=== PATIENT | male | born 1985 | race Caucasian/White ===

== ENCOUNTER 2018-12-14 09:14 | Inpatient (IN) | payer BC ==
[~2018-12-14 09:14] MED LIST: Buffered Lidocaine 1% SYRIN* 1 ML/SYRINGE INTRADERM ONE; Dexamethasone IV* 4 MG/ML 1 ML (4 MG) IV SLOW PU ONE; Famotidine IV* 10 MG/ML 2 ML (20 mg) IV ONE; Lactated Ringers 1000 ML Bag* 1,000 ML IV SCH
--- OUTSIDE RECORDS SUMMARY | 2018-12-14 09:17 | XMS REPORT | Continuity of Care Document ---
:1985 External Reference #:[id number] Author Name Christie Curz MD Address [address] [place] [address] Care Team Providers Name Role Phone Maricruz Ramos MD Care Team Information Internist Unavailable Christie Cruz MD Primary Care Physician Unavailable Payers Type Date Identification Numbers Payment Provider Subscriber Policy Number: [id number] Jay Chan Murray PayID: [id number] [address] [address] [place] [address] Advance Directives Description No Information Available Problems Date Description Provider Status Onset: 05/19/2012 Sprain of ankle Vinay Chaudhari MD Active Onset: 01/31/2017 Benign essential hypertension Damián Ascencio M.D. Active Onset: 01/31/2017 Shoulder joint pain Damián Ascencio M.D. Active Onset: 01/31/2017 Disorder of shoulder Damián Ascencio M.D. Active Onset: 01/31/2017 Glenoid labrum tear Damián Ascencio M.D. Active Onset: 02/11/2017 Brachial neuritis Damián Ascencio M.D. Active Onset: 06/20/2017 Carpal tunnel syndrome of right wrist Damián Ascencio M.D. 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 Work Status Currently Working Tobacco Use Start: Unknown End: Quit in 2013 Unknown Smoking Status Reviewed: 11/22/18 Quit in 2013 Smokeless Tobacco Never Used Smokeless Tobacco ETOH Use Currently consumes alcohol socially Recreational Drug Use Denies Drug Use Tobacco Use Start: Unknown End: Patient is a former Quit 2013 Unknown smoker Allergies, Adverse Reactions, Alerts Description No Known Drug Allergies Medications Medication Date Status Form Strength Qnty SIG Indications Ordering Provider Losartan 07/25/20 Active Tablets 50mg 30tabs 1 by Nancy, Potassium 17 mouth MD Christie every day Wrist 05/13/20 Active Misc 1units wear on M75.41 Nancy, Brace/Suede 17 right MD Christie Finish/Right/L wrist arge during day G56.01 Atorvastatin 02/11/2017 Active Tablets 40mg 30tabs 1 by mouth Nancy, Calcium every MD Christie evening Amlodipine 01/27/2017 Active Tablets 5mg 30tabs take one I1 Nancy, Besylate tablet by 0 MD Christie mouth every day for blood pressure Lyrica Active Capsules 100mg take one Unknown capsule by mouth twice a day. Cyclobenzaprine Active Tablets 10mg 1 tablet Unknown HCL by mouth 3 times per day Oxycodone HCL Active Tablets 5mg A/D prn Quinton Do MD Amoxicillin/Clavul 11/01/2018 - Hx Tablets 875-125 20tabs take one J0 ayana Evans Potassium 11/22/2018 mg tablet 1. Tessa every 12 90 e, MS, hours [employer], CNM Hydrocodone-Acetam 03/29/2018 - Hx Tablets 5-325mg 14tabs 1 tab once Shmuel, inophen 06/14/2018 per day lucia Choudharyn pain MD Mc 02/20/2018 - Hx Tablets 5-325mg 14tabs 1 tab by Shmuel, 06/14/2018 mouth once Funmi, per day as MD needed for pain Hydrocodone-Acetam 11/03/2017 - Hx Tablets 5-325mg 30tabs 1 tab Shmuel, inophen 03/01/2018 every 8 Charley, hours as MD needed Nitroglycerin 09/05/2017 - Hx Patches 0.2mg/H 30units apply 1 Ramos, 09/19/2018 24HR R patch once MD Maricruz daily,appl y in am, leave on for 12 hours,off for 12 hours Gabapentin 08/23/2017 - Hx Tablets 600mg 1 by mouth Nancy, 12/23/2017 three MD Christie times a day Tramadol HCL 08/05/2017 Hx Tablets 50mg 42tabs take one Nancy, tablet by MD Christie mouth every 8 hours as needed pain. Gabapentin 07/25/2017 - Hx Capsules 300mg 1 by mouth Nancy, 08/23/2017 three MD Christie times a day Tramadol HCL 06/15/2017 - Hx Tablets 50mg 21tabs take one Nancy, 07/25/2017 tablet by MD Christie mouth every 8 hours as needed pain. Elbow Support 05/13/2017 - Hx Misc wear on G5 Nancy, W/Encircling 03/01/2018 right 6. MD Christie Support elbow 01 Strap/Neoprene/Lar during day ge S53.031A Augmentin 04/06/2017 - Hx Tablets 875-125mg 14tabs 1 tab by Nancy, 05/13/2017 mouth MD Christie q12hrs for 7 days Cyclobenzaprine HCL 02/16/2017 Hx Tablets 10mg 90tabs 1 tab three Nancy, times a day MD Christie for upper back shoulder and neck pain Diclofenac Sodium 01/27/2017 - Hx Gel 1% 100gm 2 g topical M25 Nancy, 05/13/2017 on right .51 MD Christie shoulder 1 twice a day Ibuprofen Hx Unknown Tylenol Hx Tablets 325mg prn Unknown One Daily Complete Hx Tablets Unknown For Men Naproxen - Hx Tablets 500mg 2 daily Ranjit, 05/13/2017 MD Iker Hydrocodone-Acetami - Hx Tablets 5-325mg 30tabs 1 tab every Nancy, nophen 05/13/2017 8 hours as MD Christie needed Gabapentin - Hx Capsules 300mg 1 by mouth Nancy, 06/20/2017 three times MD Christie a day Meloxicam - Hx Tablets 15mg 30tabs 1 tab by Nancy, 06/20/2017 mouth every MD Christie day with food Medications Administered in Office Medication Date Status Form Strength Qnty SIG Indications Ordering Provider Depomedrol Administered Injection Silva, 40mg/1cc 018 Damián (gordon Amor olone acetate) Depo-Medrol Administered Injection Silva, 20mg 017 Zuleyma Steel Immunizations CPT Code Status Date Vaccine Lot # [id number] Given 07/25/2017 Influenza Virus Vaccine, Quadrivalent, Slit Virus, Im Use [id number] Given 06/05/2017 Tdap injection Vital Signs Date Vital Result Comment 11/22/2018 3:10pm BP Systolic 128 mmHg BP Diastolic 72 mmHg BP Systolic Sitting Left Arm 144 mmHg BP Diastolic Sitting Left Arm 74 mmHg Body Temperature 96.6 F Heart Rate 107 /min Respiratory Rate 18 /min Height 70 inches 5'10" Weight 217.00 lb BMI (Body Mass Index) 31.1 kg/m2 BSA (Body Surface Area) 2.16 m2 Vanduser body weight in kilograms 75 kg O2 % BldC Oximetry 98 % Ra 11/01/2018 10:19am BP Systolic Sitting Left Arm 124 mmHg BP Diastolic Sitting Left Arm 76 mmHg Body Temperature 97.0 F Heart Rate 100 /min Respiratory Rate 18 /min Height 70 inches 5'10" Weight 223.00 lb work boots BMI (Body Mass Index) 32.0 kg/m2 BSA (Body Surface Area) 2.19 m2 Vanduser body weight in kilograms 75 kg O2 % BldC Oximetry 99 % Ra 09/19/2018 10:10am BP Systolic Sitting Left Arm 138 mmHg BP Diastolic Sitting Left Arm 80 mmHg Heart Rate 106 /min Respiratory Rate 16 /min Height 70 inches 5'10" Weight 217.00 lb BMI (Body Mass Index) 31.1 kg/m2 BSA (Body Surface Area) 2.16 m2 Vanduser body weight in kilograms 75 kg 06/21/2018 2:40pm BP Systolic Sitting Right Arm 130 mmHg BP Diastolic Sitting Right Arm 84 mmHg Body Temperature 97.2 F Heart Rate 84 /min Height 70 inches 5'10" Weight 207.00 lb BMI (Body Mass Index) 29.7 kg/m2 BSA (Body Surface Area) 2.12 m2 Vanduser body weight in kilograms 75 kg O2 % BldC Oximetry 98 % 03/01/2018 11:06am BP Systolic 147 mmHg BP Diastolic 91 mmHg Body Temperature 98.1 F Heart Rate 76 /min Respiratory Rate 16 /min Height 70 inches 5'10" Weight 210.00 lb BMI (Body Mass Index) 30.1 kg/m2 BSA (Body Surface Area) 2.13 m2 Vanduser body weight in kilograms 75 kg Pain Level 7 12/23/2017 10:58am BP Systolic 142 mmHg BP Diastolic 87 mmHg Body Temperature 96.8 F Heart Rate 92 /min Respiratory Rate 15 /min Height 70 inches 5'10" Weight 215.00 lb BMI (Body Mass Index) 30.8 kg/m2 BSA (Body Surface Area) 2.15 m2 Vanduser body weight in kilograms 75 kg 11/25/2017 3:52pm BP Systolic Sitting Left Arm 132 mmHg BP Diastolic Sitting Left Arm 82 mmHg Heart Rate 92 /min Respiratory Rate 16 /min Height 70.5 inches 5'10.50" Weight 220.00 lb BMI (Body Mass Index) 31.1 kg/m2 BSA (Body Surface Area) 2.19 m2 Vanduser body weight in kilograms 77 kg 10/05/2017 12:00pm BP Systolic Sitting Left Arm 126 mmHg BP Diastolic Sitting Left Arm 78 mmHg Heart Rate 76 /min Respiratory Rate 14 /min Height 70.5 inches 5'10.50" Weight 217.00 lb BMI (Body Mass Index) 30.7 kg/m2 BSA (Body Surface Area) 2.17 m2 Vanduser body weight in kilograms 77 kg 09/05/2017 2:14pm BP Systolic Sitting Right Arm 158 mmHg BP Diastolic Sitting Right Arm 90 mmHg Heart Rate 72 /min Respiratory Rate 16 /min Height 70.5 inches 5'10.50" Weight 208.00 lb BMI (Body Mass Index) 29.4 kg/m2 BSA (Body Surface Area) 2.13 m2 Vanduser body weight in kilograms 77 kg 08/10/2017 11:25am BP Systolic Sitting Right Arm 145 mmHg BP Diastolic Sitting Right Arm 87 mmHg Heart Rate 93 /min Respiratory Rate 18 /min Height 70.5 inches 5'10.50" Weight 207.00 lb BMI (Body Mass Index) 29.3 kg/m2 BSA (Body Surface Area) 2.13 m2 Vanduser body weight in kilograms 77 kg 07/25/2017 3:23pm BP Systolic Sitting Right Arm 152 mmHg BP Diastolic Sitting Right Arm 82 mmHg Heart Rate 86 /min Height 70.5 inches 5'10.50" Weight 208.00 lb BMI (Body Mass Index) 29.4 kg/m2 BSA (Body Surface Area) 2.13 m2 Vanduser body weight in kilograms 77 kg O2 % BldC Oximetry 98 % 06/15/2017 10:49am BP Systolic Sitting Right Arm 146 mmHg BP Diastolic Sitting Right Arm 94 mmHg Body Temperature 97.8 F Heart Rate 88 /min Height 70.5 inches 5'10.50" Weight 210.00 lb BMI (Body Mass Index) 29.7 kg/m2 BSA (Body Surface Area) 2.14 m2 Vanduser body weight in kilograms 77 kg O2 % BldC Oximetry 98 % 05/13/2017 1:49pm BP Systolic Sitting Right Arm 142 mmHg BP Diastolic Sitting Right Arm 92 mmHg Heart Rate 90 /min Height 70.5 inches 5'10.50" Weight 212.50 lb BMI (Body Mass Index) 30.1 kg/m2 BSA (Body Surface Area) 2.15 m2 Vanduser body weight in kilograms 77 kg O2 % BldC Oximetry 98 % 03/04/2017 1:19pm BP Systolic 152 mmHg BP Diastolic 94 mmHg Heart Rate 104 /min Height 70.5 inches 5'10.50" Weight 216.00 lb BMI (Body Mass Index) 30.6 kg/m2 BSA (Body Surface Area) 2.17 m2 Vanduser body weight in kilograms 77 kg 02/11/2017 11:24am BP Systolic Sitting Right Arm 126 mmHg recheck. BP Diastolic Sitting Right Arm 84 mmHg recheck. 02/11/2017 10:38am BP Systolic Sitting Right Arm 172 mmHg BP Diastolic Sitting Right Arm 94 mmHg Heart Rate 92 /min Height 70.5 inches 5'10.50" Weight 211.00 lb BMI (Body Mass Index) 29.8 kg/m2 BSA (Body Surface Area) 2.15 m2 01/31/2017 9:54am BP Systolic Sitting Left Arm 168 mmHg BP Diastolic Sitting Left Arm 100 mmHg Heart Rate 84 /min Height 70.5 inches 5'10.50" Weight 216.00 lb BMI (Body Mass Index) 30.6 kg/m2 BSA (Body Surface Area) 2.17 m2 Vanduser body weight in kilograms 77 kg 01/27/2017 3:27pm BP Systolic Sitting Right Arm 144 mmHg retake BP Diastolic Sitting Right Arm 86 mmHg retake 01/27/2017 2:38pm BP Systolic 160 mmHg BP Diastolic 90 mmHg Heart Rate 94 /min Height 69.5 inches 5'9.50" Weight 217.00 lb with many layers of clothes. 204# at home BMI (Body Mass Index) 31.6 kg/m2 BSA (Body Surface Area) 2.15 m2 05/19/2012 10:07am BP Systolic Sitting Right Arm 132 mmHg BP Diastolic Sitting Right Arm 76 mmHg Height 69.5 inches 5'9.50" Weight 180.00 lb BMI (Body Mass Index) 26.2 kg/m2 BSA (Body Surface Area) 1.99 m2 Results Test Date Facility Test Result H/L Range Note Order 11/22/2018 [facility], Cardiology EKG <pending> [address] [place] [address] [phone] Comprehensive 11/18/2018 [facility] Glucose 94 mg/dL N 74-106 1 Metabolic Panel [address] [place] [address] [phone] BUN 20 mg/dL High 7-18 Creatinine 1.1 mg/dL N 0.6-1.3 Glom Filtration Rate, Estimate >60 mL/min >60 If >60 mL/min >60 2 BUN/Creat 18.1 ratio Sodium 139 mmol/L N 136-145 Potassium 3.8 mmol/L N 3.5-5.1 Chloride 104 mmol/L N 98-107 Carbon Dioxide 29 mmol/L N 21-32 Anion Gap 6 mEq/L Low 8-16 Calcium 8.5 mg/dL N 8.5-10.1 Total Protein 7.5 g/dL N 6.4-8.2 Albumin 4.3 g/dL N 3.4-5.0 Globulin 3.2 g/dL N 1.9-4.3 Alb/Glob 1.3 ratio Bilirubin,Total 1.1 mg/dL High 0.2-1.0 Sgot/Ast 32 U/L N 15-37 SGPT/Alt 76 U/L N 12-78 Alkaline Phosphatase 65 U/L N 45-117 Throat Culture 11/01/2018 [facility] Throat NORMAL 3, [address] [place] [address] Complete <SEE NOTE> [phone] Comprehensive 10/30/2018 [facility] Glucose 106 mg/dL N 74-10 5 Metabolic Panel [address] [place] [address] [phone] BUN 20 mg/dL High 7-18 Creatinine 1.0 mg/dL N 0.6-1.3 Glom Filtration Rate, Estimate >60 mL/min >60 If >60 mL/min >60 6 BUN/Creat 20.0 ratio Sodium 141 mmol/L N 136-145 Potassium 4.0 mmol/L N 3.5-5.1 Chloride 104 mmol/L N 98-107 Carbon Dioxide 29 mmol/L N 21-32 Anion Gap 8 mEq/L N 8-16 Calcium 8.8 mg/dL N 8.5-10.1 Total Protein 7.3 g/dL N 6.4-8.2 Albumin 4.0 g/dL N 3.4-5.0 Globulin 3.3 g/dL N 1.9-4.3 Alb/Glob 1.2 ratio Bilirubin,Total 0.4 mg/dL N 0.2-1.0 Sgot/Ast 50 U/L High 15-37 SGPT/Alt 110 U/L High 12-78 Alkaline Phosphatase 57 U/L N 45-117 LDL Cholesterol Profile 10/30/2018 [facility] Cholesterol 162 mg/dL <[address] [place], [place] [id number] [phone] Triglycerides 173 mg/dL High <150 8 HDL Cholesterol 53 mg/dL >40 9 LDL-Cholesterol 74 mg/dL < 100 10 CBC W/Automated Diff 10/30/2018 [facility] White Blood 7.1 K/uL N 3.4-10.[address] [place] [address] [phone] Red Blood Count 5.53 M/uL N 4.20-5.80 Hemoglobin 17.2 gm/dL High 12.8-17.0 Hematocrit 48.0 % N 38.0-48.0 Mean Cell Volume 86.8 fl N 80.0-96.0 Mean Corpuscular HGB 31.1 pg N 27.0-33.0 Mean Corpuscular HGB Conc 35.8 g/dL N 31.7-36.0 Platelet Count 356 K/uL N 155-360 Red Cell Distri Width SD 40.5 fl N 36-51 Red Cell Distri Width %CV 13.1 % N 11.6-15.8 Mean Platelet Volume 9.3 fL N 6.6-10.6 Neut% 52.9 % N 33.0-73.0 Lymph % 31.1 % N 20.0-42.0 Lamar % 11.8 % High 0.0-10.0 Eo% 3.4 % N 0.0-6.6 Bas% 0.8 % N 0.0-1.1 Neut# 3.76 K/uL N 1.8-7.0 Lymph # 2.21 K/uL N 1.0-4.0 Lamar # 0.84 K/uL High 0.0-0.8 Eos # 0.24 K/uL N 0.0-0.5 Baso # 0.06 K/uL N 0.0-0.1 Laboratory test 10/30/2018 [facility] Vitamin 31.3 30.0-100.0 [address] D,25-Hydroxy ng/[place] [address] [phone] Slide Review DIFF ORDERED Differential-WBC Confirm 10/30/2018 [facility] Total Cells 100 #CELLS [address] [place] [address] [phone] Neutrophils% 57 % N 33-73 Lymph% 14 % Low 20-42 Atypical Lymph% 16 % High 0-7 Monocyte% 8 % N 0-10 Eosinophil% 5 % N 0-5 Platelet Estimate NORMAL Lyme Igg & Igm By 10/30/2018 [facility] Lyme AB Igg By Western . Western Blot [address] [place] [address] [phone] P93 AB Absent . P66 AB Absent . P58 AB Absent . P45 AB Absent . P41 AB Absent . P39 AB Absent . P30 AB Absent . P28 AB Absent . P23 AB Absent . P18 AB Absent . Lyme Igg WB Interpretation Negative . 12 Lyme AB Igm By Western Blot . P41 AB Absent . P39 AB Absent . P23 AB Absent . Lyme Igm WB Interpretation Negative . 13 Vma And 08/13/2017 [facility] Norepinephrine,Ur 25 Undefined 14 Catecholamines, [address] ug/L 24HR [place] [address] [phone] Norepinephrine,U,24HR 83 ug/24hr 0-135 Epinephrine,Urine 5 ug/L Undefined Epinephrine,U,24 HR 17 ug/24hr 0-20 Dopamine,Urine 99 ug/L Undefined Dopamine,Ur,24HR 327 ug/24hr 0-510 Vma,Urine 1.6 mg/L Undefined Vma,Urine,24HR 5.3 mg/24hr 0.0-7.5 15 Laboratory test 08/10/2017 [facility] Thyroid Stim 1.97 uIU/mL N 0.30-4.20 [address] Hormone [place], [place] [id number] [phone] Free T4 0.86 ng/dL N 0.76-1.46 Metanephrines,Frac,Plasma 08/10/2017 [facility] Normetanephrines,Plasma 16 0- [address] pg/[place] [address] [phone] Metanephrine, Plasma < 10 pg/mL 0-62 17 Lymphocytes/leuk NFr 08/08/2017 N2N/CCD Import Lymphocytes/leuk 33.0 20.0-42.0 Bld Auto NFr Bld Auto MCV RBC Auto 08/08/2017 N2N/CCD Import MCV RBC Auto 86.7 80.0-96.0 Monocytes/leuk NFr 08/08/2017 N2N/CCD Import Monocytes/leuk NFr 11.7 High 0.0-10.0 Bld Auto Bld Auto Neutrophils # Bld 08/08/2017 N2N/CCD Import Neutrophils # Bld 4.03 1.8- 7.0 Auto Auto Neutrophils/leuk NFr 08/08/2017 N2N/CCD Import Neutrophils/leuk 52.7 33.0-73.0 Bld Auto NFr Bld Auto PMV Bld Auto 08/08/2017 N2N/CCD Import PMV Bld Auto 9.8 6.6-10.6 Platelets [#/volume] 08/08/2017 N2N/CCD Import Platelets 340 150-400 in Blood by [#/volume] in Blood Automated count by Automated count Potassium SerPl-sCnc 08/08/2017 N2N/CCD Import Potassium 3.6 3.5-5.1 SerPl-sCnc Prot SerPl-mCnc 08/08/2017 N2N/CCD Import Prot SerPl-mCnc 7.2 6.4-8.2 RDW RBC Auto 08/08/2017 N2N/CCD Import RDW RBC Auto 39.6 36-51 RDW RBC Auto-Rto 08/08/2017 N2N/CCD Import RDW RBC Auto-Rto 12.7 11.6- 15.8 Serum or plasma 08/08/2017 N2N/CCD Import Serum or plasma 273 39-308 creatine kinase creatine kinase measurement (enzym measurement (enzymatic activity/volume) Serum or plasma 08/08/2017 N2N/CCD Import Serum or plasma 0.4 0.2-1.0 total bilirubin total bilirubin measurement (mass/ measurement (mass/volume) Sodium SerPl-sCnc 08/08/2017 N2N/CCD Import Sodium SerPl-sCnc 141 136- 145 WBC # Bld Auto 08/08/2017 N2N/CCD Import WBC # Bld Auto 7.7 3.4-10.5 Albumin SerPl-mCnc 08/08/2017 N2N/CCD Import Albumin SerPl-mCnc 4.2 3.4- 5.0 Alt SerPl-cCnc 08/08/2017 N2N/CCD Import Alt SerPl-cCnc 39 12-78 Alp SerPl-cCnc 08/08/2017 N2N/CCD Import Alp SerPl-cCnc 54 45-117 CBS W/Automated Diff 08/08/2017 [facility] White Blood Count 7.7 N 3.4-10.[address] K/[place] [address] [phone] Red Blood Count 5.32 M/uL N 4.20-5.80 Hemoglobin 16.6 gm/dL N 12.8-17.0 Hematocrit 46.1 % N 38.0-48.0 Mean Cell Volume 86.7 fl N 80.0-96.0 Mean Corpuscular HGB 31.2 pg N 27.0-33.0 Mean Corpuscular HGB Conc 36.0 g/dL N 31.7-36.0 Platelet Count 340 K/uL N 150-400 Red Cell Distri Width SD 39.6 fl N 36-51 Red Cell Distri Width %CV 12.7 % N 11.6-15.8 Mean Platelet Volume 9.8 fL N 6.6-10.6 Neut% 52.7 % N 33.0-73.0 Lymph % 33.0 % N 20.0-42.0 Lamar % 11.7 % High 0.0-10.0 Eo% 2.1 % N 0.0-6.6 Bas% 0.5 % N 0.0-1.1 Neut# 4.03 K/uL N 1.8-7.0 Lymph # 2.53 K/uL N 1.0-4.0 Lamar # 0.90 K/uL High 0.0-0.8 Eos # 0.16 K/uL N 0.0-0.5 Baso # 0.04 K/uL N 0.0-0.1 Laboratory test 08/08/2017 [facility] Troponin-I < 0.015 [address] ng/[place] [address] [phone] Albumin/Glob SerPl 08/08/2017 N2N/CCD Import Albumin/Glob SerPl 1.4 Anion Gap 08/08/2017 N2N/CCD Import Anion Gap 6 Low 8- SerPl-sCnc SerPl-sCnc 16 Aspartate 08/08/2017 N2N/CCD Import Aspartate 20 15 aminotransferase aminotransferase -3 [Enzymatic [Enzymatic 7 activity/vol activity/volume] in Serum or Plasma Automated 08/08/2017 N2N/CCD Import Automated 31.2 27 erythrocyte mean erythrocyte mean .0 corpuscular corpuscular -3 hemoglobin hemoglobin (mass 3. per erythrocyte) 0 Automated 08/08/2017 N2N/CCD Import Automated 36.0 31 erythrocyte mean erythrocyte mean .7 corpuscular corpuscular -3 hemoglobin hemoglobin 6. concentration 0 measurement (mass/volume) BUN SerPl-mCnc 08/08/2017 N2N/CCD Import BUN SerPl-mCnc 16 7- 18 BUN/Creat SerPl 08/08/2017 N2N/CCD Import BUN/Creat SerPl 14.5 Basophils 08/08/2017 N2N/CCD Import Basophils 0.04 0. [#/volume] in Blood [#/volume] in Blood 0- by Automated count by Automated count 0. 1 Basophils/leuk NFr 08/08/2017 N2N/CCD Import Basophils/leuk NFr 0.5 0. Bld Auto Bld Auto 0- 1. 1 Blood erythrocytes 08/08/2017 N2N/CCD Import Blood erythrocytes 5.32 4. automated count automated count 20 (number/volume) (number/volume) -5 .8 0 Blood hemoglobin 08/08/2017 N2N/CCD Import Blood hemoglobin 16.6 12 measurement measurement .8 (mass/volume) (mass/volume) -1 7. 0 Lymphocytes 08/08/2017 N2N/CCD Import Lymphocytes 2.53 1. [#/volume] in Blood [#/volume] in Blood 0- by Automated count by Automated count 4. 0 Hct VFr Bld Auto 08/08/2017 N2N/CCD Import Hct VFr Bld Auto 46.1 38 .0 -4 8. 0 Glucose 08/08/2017 N2N/CCD Import Glucose 97 74 [Mass/volume] in [Mass/volume] in -1 Serum or Plasma Serum or Plasma 06 Globulin Ser 08/08/2017 N2N/CCD Import Globulin Ser 3.0 1. Calc-mCnc Calc-mCnc 9- 4. 3 Eosinophil/leuk NFr 08/08/2017 N2N/CCD Import Eosinophil/leuk NFr 2.1 0. Bld Auto Bld Auto 0- 6. 6 Eosinophil # Bld 08/08/2017 N2N/CCD Import Eosinophil # Bld 0.16 0. Auto Auto 0- 0. 5 Creat SerPl-mCnc 08/08/2017 N2N/CCD Import Creat SerPl-mCnc 1.1 0. 6- 1. 3 Chloride SerPl-sCnc 08/08/2017 N2N/CCD Import Chloride SerPl-sCnc 107 98 -1 07 Calcium SerPl-mCnc 08/08/2017 N2N/CCD Import Calcium SerPl-mCnc 8.6 8. 5- 10 .1 Co2 SerPl-sCnc 08/08/2017 N2N/CCD Import Co2 SerPl-sCnc 28 21 -3 2 Blood monocytes 08/08/2017 N2N/CCD Import Blood monocytes 0.90 High 0. automated count automated count 0- (number/volume) (number/volume) 0. 8 LDL Cholesterol 08/03/2017 [facility] Cholesterol 112 <2 20, Profile [address] mg/dL 00 21 [place] [address] [phone] Triglycerides 55 mg/dL <150 22 HDL Cholesterol 51 mg/dL >40 23 LDL-Cholesterol 50 mg/dL < 100 24 Serum or plasma 08/03/2017 N2N/CCD Import Serum or plasma 51 >40 cholesterol in HDL cholesterol in HDL measurement (ma measurement (mass/volume) Serum or plasma 08/03/2017 N2N/CCD Import Serum or plasma 50 < 100 cholesterol in LDL cholesterol in LDL measurement by measurement by calculation (mass/volume) Serum or plasma 08/03/2017 N2N/CCD Import Serum or plasma 112 <200 cholesterol cholesterol measurement measurement (mass/volu (mass/volume) Serum or plasma 08/03/2017 N2N/CCD Import Serum or plasma 55 <150 triglyceride triglyceride measurement measurement (mass/vol (mass/volume) Comprehensive 08/03/2017 [facility] Glucose 106 mg/dL N 74-106 Metabolic Panel [address] [place] [address] [phone] BUN 17 mg/dL N 7-18 Creatinine 1.0 mg/dL N 0.6-1.3 Glom Filtration Rate, Estimate >60 mL/min >60 If >60 mL/min >60 25 BUN/Creat 17.0 ratio Sodium 142 mmol/L N 136-145 Potassium 4.0 mmol/L N 3.5-5.1 Chloride 108 mmol/L High 98-107 Carbon Dioxide 30 mmol/L N 21-32 Anion Gap 4 mEq/L Low 8-16 Calcium 8.7 mg/dL N 8.5-10.1 Total Protein 7.3 g/dL N 6.4-8.2 Albumin 4.1 g/dL N 3.4-5.0 Globulin 3.2 g/dL N 1.9-4.3 Alb/Glob 1.3 ratio Bilirubin,Total 0.7 mg/dL N 0.2-1.0 Sgot/Ast 17 U/L N 15-37 SGPT/Alt 37 U/L N 12-78 Alkaline Phosphatase 54 U/L N 45-117 Neutrophils # Bld 05/06/2017 N2N/CCD Import Neutrophils # Bld 3.66 1.8- 7.0 Auto Auto Neutrophils/leuk 05/06/2017 N2N/CCD Import Neutrophils/leuk 53.5 33.0- 73.0 NFr Bld Auto NFr Bld Auto PMV Bld Auto 05/06/2017 N2N/CCD Import PMV Bld Auto 9.8 6.6-10.6 Platelets 05/06/2017 N2N/CCD Import Platelets 336 150-400 [#/volume] in [#/volume] in Blood by Automated Blood by count Automated count Potassium 05/06/2017 N2N/CCD Import Potassium 3.9 3.5-5.1 SerPl-sCnc SerPl-sCnc Prot SerPl-mCnc 05/06/2017 N2N/CCD Import Prot SerPl-mCnc 7.7 6.4-8.2 RBC # Bld Auto 05/06/2017 N2N/CCD Import RBC # Bld Auto 5.18 4.20-5.80 RDW RBC Auto 05/06/2017 N2N/CCD Import RDW RBC Auto 38.9 36-51 RDW RBC Auto-Rto 05/06/2017 N2N/CCD Import RDW RBC Auto-Rto 12.6 11.6- 15.8 Serum or plasma 05/06/2017 N2N/CCD Import Serum or plasma 54 >40 cholesterol in HDL cholesterol in measurement (ma HDL measurement (mass/volume) Serum or plasma 05/06/2017 N2N/CCD Import Serum or plasma 129 <200 cholesterol cholesterol measurement measurement (mass/volu (mass/volume) Serum or plasma 05/06/2017 N2N/CCD Import Serum or plasma 65 <150 triglyceride triglyceride measurement measurement (mass/vol (mass/volume) Sodium SerPl-sCnc 05/06/2017 N2N/CCD Import Sodium SerPl-sCnc 141 136- 145 WBC # Bld Auto 05/06/2017 N2N/CCD Import WBC # Bld Auto 6.8 3.4-10.5 Anion Gap 05/06/2017 N2N/CCD Import Anion Gap 7 Low 8-16 SerPl-sCnc SerPl-sCnc Albumin/Glob SerPl 05/06/2017 N2N/CCD Import Albumin/Glob 1.5 SerPl Albumin SerPl-mCnc 05/06/2017 N2N/CCD Import Albumin 4.6 3.4-5.0 SerPl-mCnc Alt SerPl-cCnc 05/06/2017 N2N/CCD Import Alt SerPl-cCnc 56 12-78 Alp SerPl-cCnc 05/06/2017 N2N/CCD Import Alp SerPl-cCnc 64 45-117 CBS W/Automated 05/06/2017 [facility] White Blood Count 6.8 K/uL N 3.4-10.5 26 Diff [address] [place] [address] [phone] Red Blood Count 5.18 M/uL N 4.20-5.80 Hemoglobin 16.1 gm/dL N 12.8-17.0 Hematocrit 44.9 % N 38.0-48.0 Mean Cell Volume 86.7 fl N 80.0-96.0 Mean Corpuscular HGB 31.1 pg N 27.0-33.0 Mean Corpuscular HGB Conc 35.9 g/dL N 31.7-36.0 Platelet Count 336 K/uL N 150-400 Red Cell Distri Width SD 38.9 fl N 36-51 Red Cell Distri Width %CV 12.6 % N 11.6-15.8 Mean Platelet Volume 9.8 fL N 6.6-10.6 Neut% 53.5 % N 33.0-73.0 Lymph % 34.1 % N 20.0-42.0 Lamar % 9.9 % N 0.0-10.0 Eo% 1.9 % N 0.0-6.6 Bas% 0.6 % N 0.0-1.1 Neut# 3.66 K/uL N 1.8-7.0 Lymph # 2.33 K/uL N 1.0-4.0 Lamar # 0.68 K/uL N 0.0-0.8 Eos # 0.13 K/uL N 0.0-0.5 Baso # 0.04 K/uL N 0.0-0.1 LDL Cholesterol Profile 05/06/2017 [facility] Cholesterol 129 mg/dL <200 [address] [place] [address] [phone] Triglycerides 65 mg/dL <150 28 HDL Cholesterol 54 mg/dL >40 29 LDL-Cholesterol 62 mg/dL < 100 30 Comprehensive Metabolic 05/06/2017 [facility] Glucose 89 mg/dL N 74-106 Panel [address] [place] [address] [phone] BUN 17 mg/dL N 7-18 Creatinine 1.2 mg/dL N 0.6-1.3 Glom Filtration Rate, Estimate >60 mL/min >60 If >60 mL/min >60 31 BUN/Creat 14.1 ratio Sodium 141 mmol/L N 136-145 Potassium 3.9 mmol/L N 3.5-5.1 Chloride 104 mmol/L N 98-107 Carbon Dioxide 30 mmol/L N 21-32 Anion Gap 7 mEq/L Low 8-16 Calcium 9.2 mg/dL N 8.5-10.1 Total Protein 7.7 g/dL N 6.4-8.2 Albumin 4.6 g/dL N 3.4-5.0 Globulin 3.1 g/dL N 1.9-4.3 Alb/Glob 1.5 ratio Bilirubin,Total 0.8 mg/dL N 0.2-1.0 Sgot/Ast 24 U/L N 15-37 SGPT/Alt 56 U/L N 12-78 Alkaline Phosphatase 64 U/L N 45-117 Aspartate 05/06/2017 N2N/CCD Import Aspartate 24 15-37 aminotransferase aminotransferase [Enzymatic [Enzymatic activity/vol activity/volume] in Serum or Plasma BUN SerPl-mCnc 05/06/2017 N2N/CCD Import BUN SerPl-mCnc 17 7-18 BUN/Creat SerPl 05/06/2017 N2N/CCD Import BUN/Creat SerPl 14.1 Basophils [#/volume] 05/06/2017 N2N/CCD Import Basophils 0.04 0.0-0.1 in Blood by [#/volume] in Blood Automated count by Automated count Basophils/leuk NFr 05/06/2017 N2N/CCD Import Basophils/leuk NFr 0.6 0.0- 1.1 Bld Auto Bld Auto Bilirub SerPl-mCnc 05/06/2017 N2N/CCD Import Bilirub SerPl-mCnc 0.8 0.2- 1.0 Co2 SerPl-sCnc 05/06/2017 N2N/CCD Import Co2 SerPl-sCnc 30 21-32 Calcium SerPl-mCnc 05/06/2017 N2N/CCD Import Calcium SerPl-mCnc 9.2 8.5- 10.1 Chloride SerPl-sCnc 05/06/2017 N2N/CCD Import Chloride SerPl-sCnc 104 98 -107 Creat SerPl-mCnc 05/06/2017 N2N/CCD Import Creat SerPl-mCnc 1.2 0.6-1.3 Eosinophil # Bld 05/06/2017 N2N/CCD Import Eosinophil # Bld 0.13 0.0- 0.5 Auto Auto Eosinophil/leuk NFr 05/06/2017 N2N/CCD Import Eosinophil/leuk NFr 1.9 0.0-6.6 Bld Auto Bld Auto Monocytes/leuk NFr 05/06/2017 N2N/CCD Import Monocytes/leuk NFr 9.9 0.0- 10.0 Bld Auto Bld Auto Monocytes # Bld Auto 05/06/2017 N2N/CCD Import Monocytes # Bld 0.68 0.0- 0.8 Auto MCV RBC Auto 05/06/2017 N2N/CCD Import MCV RBC Auto 86.7 80.0-96. 0 MCHC RBC Auto-mCnc 05/06/2017 N2N/CCD Import MCHC RBC Auto-mCnc 35.9 31.7-36. 0 MCH RBC Qn Auto 05/06/2017 N2N/CCD Import MCH RBC Qn Auto 31.1 27.0-33. 0 Lymphocytes/leuk NFr 05/06/2017 N2N/CCD Import Lymphocytes/leuk 34.1 20.0-42. Bld Auto NFr Bld Auto 0 Lymphocytes 05/06/2017 N2N/CCD Import Lymphocytes 2.33 1.0-4.0 [#/volume] in Blood [#/volume] in Blood by Automated count by Automated count LDLc SerPl Calc-mCnc 05/06/2017 N2N/CCD Import LDLc SerPl 62 < 100 Calc-mCnc Hgb Bld-mCnc 05/06/2017 N2N/CCD Import Hgb Bld-mCnc 16.1 12.8-17. 0 Hct VFr Bld Auto 05/06/2017 N2N/CCD Import Hct VFr Bld Auto 44.9 38.0- 48. 0 Globulin Ser 05/06/2017 N2N/CCD Import Globulin Ser 3.1 1.9-4.3 Calc-mCnc Calc-mCnc Glucose 05/06/2017 N2N/CCD Import Glucose 89 74-106 [Mass/volume] in [Mass/volume] in Serum or Plasma Serum or Plasma Co2 SerPl-sCnc 01/29/2017 N2N/CCD Import Co2 SerPl-sCnc 30 21-32 Calcium SerPl-mCnc 01/29/2017 N2N/CCD Import Calcium SerPl-mCnc 9.0 8.5- 10.1 Chloride SerPl-sCnc 01/29/2017 N2N/CCD Import Chloride SerPl-sCnc 104 98 -107 Creat SerPl-mCnc 01/29/2017 N2N/CCD Import Creat SerPl-mCnc 1.1 0.6-1.3 Globulin Ser 01/29/2017 N2N/CCD Import Globulin Ser 3.0 1.9-4.3 Calc-mCnc Calc-mCnc Glucose 01/29/2017 N2N/CCD Import Glucose 97 74-106 [mass/volume] in [mass/volume] in serum or plasma serum or plasma LDLc SerPl Calc-mCnc 01/29/2017 N2N/CCD Import LDLc SerPl 175 < 100 Calc-mCnc Potassium SerPl-sCnc 01/29/2017 N2N/CCD Import Potassium 3.6 3.5-5.1 SerPl-sCnc Prot SerPl-mCnc 01/29/2017 N2N/CCD Import Prot SerPl-mCnc 7.7 6.4-8.2 Serum or plasma 01/29/2017 N2N/CCD Import Serum or plasma 51 >40 cholesterol in HDL cholesterol in HDL measurement (ma measurement (mass/volume) Serum or plasma 01/29/2017 N2N/CCD Import Serum or plasma 250 High <200 cholesterol cholesterol measurement measurement (mass/volu (mass/volume) Serum or plasma 01/29/2017 N2N/CCD Import Serum or plasma 119 <150 triglyceride triglyceride measurement measurement (mass/vol (mass/volume) Sodium SerPl-sCnc 01/29/2017 N2N/CCD Import Sodium SerPl-sCnc 140 136- 145 Eosinophil # Bld 01/29/2017 N2N/CCD Import Eosinophil # Bld 0.19 0.0- 0.5 Auto Auto Blood glucose mean 01/29/2017 N2N/CCD Import Blood glucose mean 111 value measurement value measurement estimated fro estimated from glycated hemoglobin (mass/volume) Basophils/leuk NFr 01/29/2017 N2N/CCD Import Basophils/leuk NFr 0.7 0.0- 1.1 Bld Auto Bld Auto Basophils # Bld Auto 01/29/2017 N2N/CCD Import Basophils # Bld 0.04 0.0- 0.1 Auto LDL Cholesterol 01/29/2017 [facility] Cholesterol 250 High <200 32, Profile [address] mg/dL 33 [place], [place] [id number] [phone] Triglycerides 119 mg/dL <150 34 HDL Cholesterol 51 mg/dL >40 35 LDL-Cholesterol 175 mg/dL < 100 36 Glycohemoglobin A1c 01/29/2017 [facility] Glycohemoglobin 5.5 % N 4.2-6.[address] (A1c) [place] [address] [phone] eAG 111 mg/dL Comprehensive Metabolic 01/29/2017 [facility] Glucose 97 mg/dL N 74-[address] [place] [address] [phone] BUN 25 mg/dL High 7-18 Creatinine 1.1 mg/dL N 0.6-1.3 Glom Filtration Rate, Estimate >60 mL/min >60 If >60 mL/min >60 38 BUN/Creat 22.7 ratio Sodium 140 mmol/L N 136-145 Potassium 3.6 mmol/L N 3.5-5.1 Chloride 104 mmol/L N 98-107 Carbon Dioxide 30 mmol/L N 21-32 Anion Gap 6 mEq/L Low 8-16 Calcium 9.0 mg/dL N 8.5-10.1 Total Protein 7.7 g/dL N 6.4-8.2 Albumin 4.7 g/dL N 3.4-5.0 Globulin 3.0 g/dL N 1.9-4.3 Alb/Glob 1.6 ratio Bilirubin,Total 0.8 mg/dL N 0.2-1.0 Sgot/Ast 19 U/L N 15-37 SGPT/Alt 52 U/L N 12-78 Alkaline Phosphatase 63 U/L N 45-117 CBS W/Automated Diff 01/29/2017 [facility] White Blood 6.0 K/uL N 3.4-10.[address] [place] [address] [phone] Red Blood Count 5.32 M/uL N 4.20-5.80 Hemoglobin 16.4 gm/dL N 12.8-17.0 Hematocrit 46.5 % N 38.0-48.0 Mean Cell Volume 87.4 fl N 80.0-96.0 Mean Corpuscular HGB 30.8 pg N 27.0-33.0 Mean Corpuscular HGB Conc 35.3 g/dL N 31.7-36.0 Platelet Count 380 K/uL N 150-400 Red Cell Distri Width SD 38.9 fl N 36-51 Red Cell Distri Width %CV 12.3 % N 11.6-15.8 Mean Platelet Volume 9.7 fL N 6.6-10.6 Neut% 53.2 % N 33.0-73.0 Lymph % 32.8 % N 20.0-42.0 Lamar % 10.1 % High 0.0-10.0 Eo% 3.2 % N 0.0-6.6 Bas% 0.7 % N 0.0-1.1 Neut# 3.21 K/uL N 1.8-7.0 Lymph # 1.98 K/uL N 1.0-4.0 Lamar # 0.61 K/uL N 0.0-0.8 Eos # 0.19 K/uL N 0.0-0.5 Baso # 0.04 K/uL N 0.0-0.1 Eosinophil/leuk NFr 01/29/2017 N2N/CCD Import Eosinophil/leuk NFr 3.2 0.0-6.6 Bld Auto Bld Auto Hct VFr Bld Auto 01/29/2017 N2N/CCD Import Hct VFr Bld Auto 46.5 38.0- 48.0 Hgb A1c MFr Bld 01/29/2017 N2N/CCD Import Hgb A1c MFr Bld 5.5 4.2-6.3 Hgb Bld-mCnc 01/29/2017 N2N/CCD Import Hgb Bld-mCnc 16.4 12.8-17.0 Lymphocytes # Bld 01/29/2017 N2N/CCD Import Lymphocytes # Bld 1.98 1.0- 4.0 Auto Auto Lymphocytes/leuk NFr 01/29/2017 N2N/CCD Import Lymphocytes/leuk 32.8 20.0-42.0 Bld Auto NFr Bld Auto MCH RBC Qn Auto 01/29/2017 N2N/CCD Import MCH RBC Qn Auto 30.8 27.0- 33.0 MCHC RBC Auto-mCnc 01/29/2017 N2N/CCD Import MCHC RBC Auto-mCnc 35.3 31.7-36.0 MCV RBC Auto 01/29/2017 N2N/CCD Import MCV RBC Auto 87.4 80.0-96.0 Monocytes # Bld Auto 01/29/2017 N2N/CCD Import Monocytes # Bld 0.61 0.0- 0.8 Auto Monocytes/leuk NFr 01/29/2017 N2N/CCD Import Monocytes/leuk NFr 10.1 High 0.0-10.0 Bld Auto Bld Auto Neutrophils # Bld 01/29/2017 N2N/CCD Import Neutrophils # Bld 3.21 1.8- 7.0 Auto Auto Neutrophils/leuk NFr 01/29/2017 N2N/CCD Import Neutrophils/leuk 53.2 33.0-73.0 Bld Auto NFr Bld Auto PMV Bld Auto 01/29/2017 N2N/CCD Import PMV Bld Auto 9.7 6.6-10.6 Bilirub SerPl-mCnc 01/29/2017 N2N/CCD Import Bilirub SerPl-mCnc 0.8 0.2- 1.0 BUN/Creat SerPl 01/29/2017 N2N/CCD Import BUN/Creat SerPl 22.7 BUN SerPl-mCnc 01/29/2017 N2N/CCD Import BUN SerPl-mCnc 25 High 7-18 Anion Gap SerPl-sCnc 01/29/2017 N2N/CCD Import Anion Gap 6 Low 8-16 SerPl-sCnc Albumin/Glob SerPl 01/29/2017 N2N/CCD Import Albumin/Glob SerPl 1.6 Albumin SerPl-mCnc 01/29/2017 N2N/CCD Import Albumin SerPl-mCnc 4.7 3.4- 5.0 Ast SerPl-cCnc 01/29/2017 N2N/CCD Import Ast SerPl-cCnc 19 15-37 Alt SerPl-cCnc 01/29/2017 N2N/CCD Import Alt SerPl-cCnc 52 12-78 Alp SerPl-cCnc 01/29/2017 N2N/CCD Import Alp SerPl-cCnc 63 45-117 WBC # Bld Auto 01/29/2017 N2N/CCD Import WBC # Bld Auto 6.0 3.4-10.5 RDW RBC Auto-Rto 01/29/2017 N2N/CCD Import RDW RBC Auto-Rto 12.3 11.6- 15.8 RDW RBC Auto 01/29/2017 N2N/CCD Import RDW RBC Auto 38.9 36-51 RBC # Bld Auto 01/29/2017 N2N/CCD Import RBC # Bld Auto 5.32 4.20-5.80 Platelet # Bld Auto 01/29/2017 N2N/CCD Import Platelet # Bld Auto 380 150-400 1 R94.5 2 Note: Persistent reduction for 3 months or more in an eGFR <60 mL/min/1.73 m2 defines CKD. Patients with eGFR values >/=60 mL/min/1.73 m2 may also have CKD if evidence of persistent proteinuria is present. The original MDRD equation for estimated GFR is not valid for patients less than 18 years of age. Additional information may be found at www.kdoqi.org. 3 J02.9 4 NORMAL THROAT MONO 5 E78.5,K22.9,E55.9,M25.50,R53.83 6 Note: Persistent reduction for 3 months or more in an eGFR <60 mL/min/1.73 m2 defines CKD. Patients with eGFR values >/=60 mL/min/1.73 m2 may also have CKD if evidence of persistent proteinuria is present. The original MDRD equation for estimated GFR is not valid for patients less than 18 years of age. Additional information may be found at www.kdoqi.org. 7 Reference Guidelines*: Desirable: ........... < 200 mg/dL Borderline High: ..... 200-239 mg/dL High: ................ >=240 mg/dL * The National Cholesterol Education Program (NCEP) 8 Reference Guidelines*: Normal: ............. < 150 mg/dL Borderline High: .... 150-199 mg/dL High: ............... 200-499 mg/dL Very High: .......... > 500 mg/dL * Source: National Cholesterol Education Program (NCEP) 9 Reference Guidelines*: Low HDL: ..... < 40 mg/dL Normal: ..... 40-60 mg/dL Desirable: ... > 60 mg/dL *The National Cholesterol Education Program(NCEP) 10 Reference Guidelines*: Optimal:........... <100 mg/dL Near Optimal....... 100-129 mg/dL Borderline High.... 130-159 mg/dL High............... 160-189 mg/dL Very High.......... >=190 mg/dL * Source: National Cholesterol Education Program (NCEP) 11 Vitamin D deficiency has been defined by the [place] [employer] and an Endocrine Society practice guideline as a level of serum 25-OH vitamin D less than 20 ng/mL (1,2). The Endocrine Society went on to further define vitamin D insufficiency as a level between 21 and 29 ng/mL (2). 1. IOM ([place] [employer]). 2010. Dietary reference intakes for calcium and D. [place]: The National Academies Press. 2. Jeet MF, Elizabeth ALVA, Brittany NOE, et al. Evaluation, treatment, and prevention of vitamin D deficiency: an Endocrine Society clinical practice guideline. JCEM. 2010; 96(7):1911-30. Performed at: RN - [facility] [address] [id number] [place] [employer]: Mandi Brown MD, Phone: [phone] 12 Positive: 5 of the following Borrelia-specific bands: 18,23,28,30,39,41,45,58, 66, and 93. Negative: No bands or banding patterns which do not meet positive criteria. 13 Note: An equivocal or positive EIA result followed by a negative Western Blot result is considered NEGATIVE. An equivocal or positive EIA result followed by a positive Western Blot is considered POSITIVE by the CDC. Positive: 2 of the following bands: 23,39 or 41 Negative: No bands or banding patterns which do not meet positive criteria. Criteria for positivity are those recommended by CDC/ASTPHLD. p23=Osp C, u05=birzegfuw Note: Sera from individuals with the following may cross react in the [place] Western Blot assays: other spirochetal diseases (periodontal disease, leptospirosis, relapsing fever, yaws, and pinta); connective autoimmune (Rheumatoid Arthritis and Systemic Lupus Erythematosus and also individuals with Antinuclear Antibody); other infections ([place] Spotted Fever; Sveta-Mckeon Virus, and Cytomegalovirus). Performed at: [address] [id number] [place] [employer]: Mandi Brown MD, Phone: [phone] 14 R07.9 I10 15 This test was developed and its performance characteristics determined by [facility]. It has not been cleared or approved by the Food and Drug Administration. Performed at: [address] [id number] [place] [employer]: Luis Alberto Avila MD, Phone: [phone] 16 R07.9,I10 17 Concentrations of Normetanephrine between 146 and 487 pg/mL, and Metanephrine between 63 and 255 pg/mL are considered indeterminate. Follow-up biochemical testing is recommended when patient levels fall within this indeterminate range. These tests include repeat testing of plasma/urinary fractionated metanephrines and plasma catecholamines. Performed at: [address] [id number] [place] [employer]: Luis Alberto Avila MD, Phone: [phone] 18 CP HEART IS RACING, SOB 19 0.0 - 0.045 ng/mL: Normal 0.046 - 0.5 ng/mL: Suggestive 0.6 - 1.5 ng/mL: Consistent 20 I10,E78.5 21 Reference Guidelines*: Desirable: ........... < 200 mg/dL Borderline High: ..... 200-239 mg/dL High: ................ >=240 mg/dL * The National Cholesterol Education Program (NCEP) 22 Reference Guidelines*: Normal: ............. < 150 mg/dL Borderline High: .... 150-199 mg/dL High: ............... 200-499 mg/dL Very High: .......... > 500 mg/dL * Source: National Cholesterol Education Program (NCEP) 23 Reference Guidelines*: Low HDL: ..... < 40 mg/dL Normal: ..... 40-60 mg/dL Desirable: ... > 60 mg/dL *The National Cholesterol Education Program(NCEP) 24 Reference Guidelines*: Optimal:........... <100 mg/dL Near Optimal....... 100-129 mg/dL Borderline High.... 130-159 mg/dL High............... 160-189 mg/dL Very High.......... >=190 mg/dL * Source: National Cholesterol Education Program (NCEP) 25 Note: Persistent reduction for 3 months or more in an eGFR <60 mL/min/1.73 m2 defines CKD. Patients with eGFR values >/=60 mL/min/1.73 m2 may also have CKD if evidence of persistent proteinuria is present. The original MDRD equation for estimated GFR is not valid for patients less than 18 years of age. Additional information may be found at www.kdoqi.org. 26 E78.2,E78.5,I10 27 Reference Guidelines*: Desirable: ........... < 200 mg/dL Borderline High: ..... 200-239 mg/dL High: ................ >=240 mg/dL * The National Cholesterol Education Program (NCEP) 28 Reference Guidelines*: Normal: ............. < 150 mg/dL Borderline High: .... 150-199 mg/dL High: ............... 200-499 mg/dL Very High: .......... > 500 mg/dL * Source: National Cholesterol Education Program (NCEP) 29 Reference Guidelines*: Low HDL: ..... < 40 mg/dL Normal: ..... 40-60 mg/dL Desirable: ... > 60 mg/dL *The National Cholesterol Education Program(NCEP) 30 Reference Guidelines*: Optimal:........... <100 mg/dL Near Optimal....... 100-129 mg/dL Borderline High.... 130-159 mg/dL High............... 160-189 mg/dL Very High.......... >=190 mg/dL * Source: National Cholesterol Education Program (NCEP) 31 Note: Persistent reduction for 3 months or more in an eGFR <60 mL/min/1.73 m2 defines CKD. Patients with eGFR values >/=60 mL/min/1.73 m2 may also have CKD if evidence of persistent proteinuria is present. The original MDRD equation for estimated GFR is not valid for patients less than 18 years of age. Additional information may be found at www.kdoqi.org. 32 I10 33 Reference Guidelines*: Desirable: ........... < 200 mg/dL Borderline High: ..... 200-239 mg/dL High: ................ >=240 mg/dL * The National Cholesterol Education Program (NCEP) 34 Reference Guidelines*: Normal: ............. < 150 mg/dL Borderline High: .... 150-199 mg/dL High: ............... 200-499 mg/dL Very High: .......... > 500 mg/dL * Source: National Cholesterol Education Program (NCEP) 35 Reference Guidelines*: Low HDL: ..... < 40 mg/dL Normal: ..... 40-60 mg/dL Desirable: ... > 60 mg/dL *The National Cholesterol Education Program(NCEP) 36 Reference Guidelines*: Optimal:........... <100 mg/dL Near Optimal....... 100-129 mg/dL Borderline High.... 130-159 mg/dL High............... 160-189 mg/dL Very High.......... >=190 mg/dL * Source: National Cholesterol Education Program (NCEP) 37 Elevated levels of HbA1c suggest the need for more aggressive treatment of glycemia. The [place] [employer] recommends that a primary goal of therapy should be a HbA1c of <7% and that physicians should re-evaluate the treatment regimen in patients with HbA1c values consistently >8%. 38 Note: Persistent reduction for 3 months or more in an eGFR <60 mL/min/1.73 m2 defines CKD. Patients with eGFR values >/=60 mL/min/1.73 m2 may also have CKD if evidence of persistent proteinuria is present. The original MDRD equation for estimated GFR is not valid for patients less than 18 years of age. Additional information may be found at www.kdoqi.org. Procedures Date Code Description Status 11/22/2018 62712 EKG-Tracing And Report Completed 01/12/2018 16387 Esophageal Motility Study Completed 12/23/2017 23928 Asp./Injection major joint Completed 09/21/2017 93399 Asp./Injection major joint Completed 09/05/2017 11792 EKG-Tracing And Report Completed 08/29/2017 94681 Bronchospasm Provocation Evaluation Multi Spirometric Completed Determinati 08/29/2017 15109 Spirometry Completed 07/29/2017 79181 Stress Test Interpre And Report Only Completed 07/29/2017 90023 Stress Test Physician Super Only Completed 07/29/2017 31729 Myocardial Imaging Tomographic Multiple Study AT Rest Or Completed Stress 07/25/2017 48636 EKG-Tracing And Report Completed 02/11/2017 73840 xray spine cervical min 4 views Completed 01/31/2017 21879 Radiology, Shoulder: Two Views (Sso) Completed 06/01/2012 34405 Radiology, Foot, Complete-3 Views Completed 06/01/2012 35434 Radiology, Ankle Complete Completed Encounters Type Date Location Provider Dx Diagnosis Office Visit 11/22/2018 Primary Care Sia [id number] Encounter for other 3:00p Office ELIAN Sherman preprocedural examination M54.12 Radiculopathy, cervical region E78.5 Hyperlipidemia, unspecified I10 Essential (primary) hypertension R94.5 Abnormal results of liver function studies Office Visit 11/01/2018 10:00a Primary Care Nathan J01.90 Acute sinusitis, Office MS Jess, unspecified [employer] EN[employer]MAN-C, CNM J02.9 Acute pharyngitis, unspecified R94.5 Abnormal results of liver function studies E78.5 Hyperlipidemia, unspecified I10 Essential (primary) hypertension Office Visit 09/19/2018 GI Skyler Sousa, K22.9 Disease of 10:00a esophagus, unspecified Office Visit 06/21/2018 Funmi Nicolas M54.12 Radiculopathy, 2:30p Office cervical region M75.41 Impingement syndrome of right shoulder Office Visit 06/14/2018 8:45a Cherise Nicolas75.41 Impingement Office MD Funmi syndrome of right shoulder G56.01 Carpal tunnel syndrome, right upper limb M54.12 Radiculopathy, cervical region Office Visit 01/25/2018 10:45a Jez Nicolas.41 Impingement Office MD Funmi syndrome of right shoulder G56.01 Carpal tunnel syndrome, right upper limb Office Visit 12/23/2017 Orthopaedic Silva M25.511 Pain in right 10:45a Office Zuleyma Steel shoulder Office Visit 11/25/2017 VALENTE Garcia MD R07.9 Chest pain, 4:00p unspecified Office Visit 10/05/2017 Cardiology Office Maricruz Ramos, R07.2 Precordial pain 11:45a I10 Essential (primary) hypertension R94.31 Abnormal electrocardiogram [ECG] [EKG] Office Visit 09/05/2017 2:00p Cardiology Office Maricruz Ramos, R07.2 Precordial pain MD I10 Essential (primary) hypertension R00.2 Palpitations E78.5 Hyperlipidemia, unspecified R94.31 Abnormal electrocardiogram [ECG] [EKG] Office Visit 08/10/2017 11:20a Primary Care Christie Cruz, R07.9 Chest pain, Office MD unspecified I10 Essential (primary) hypertension R00.2 Palpitations E78.5 Hyperlipidemia, unspecified Office Visit 07/25/2017 3:20p Primary Care Christie Cruz, R07.9 Chest pain, Office MD unspecified I10 Essential (primary) hypertension M54.12 Radiculopathy, cervical region Z23 Encounter for immunization Office Visit 06/15/2017 11:00a Primary Care Christie Cruz M75.41 Impingement Office syndrome of right shoulder S89.92xA Unspecified injury of left lower leg, initial encounter Office Visit 05/13/2017 1:20p Primary Care Christie Cruz M54.12 Radiculopathy, Office cervical region M75.41 Impingement syndrome of right shoulder I10 Essential (primary) hypertension E78.5 Hyperlipidemia, unspecified Office Visit 03/04/2017 1:20p Primary Care Christie Cruz, M54.12 Radiculopathy, Office MD cervical region M75.41 Impingement syndrome of right shoulder I10 Essential (primary) hypertension E78.5 Hyperlipidemia, unspecified Office Visit 02/23/2017 Orthopaedic Silva M54.12 Radiculopathy, 3:00p Office Zuleyma Steel cervical region M25.511 Pain in right shoulder Office Visit 02/11/2017 9:15a Orthopaedic Office Damián Ascencio M25.511 Pain in right M.D. shoulder M75.41 Impingement syndrome of right shoulder M54.12 Radiculopathy, cervical region Office Visit 02/11/2017 10:40a Primary Care Christie Cruz M25.511 Pain in right Office shoulder M54.12 Radiculopathy, cervical region I10 Essential (primary) hypertension E78.5 Hyperlipidemia, unspecified Office Visit 01/31/2017 9:45a Orthopaedic Office Damián Ascencio M25.511 Pain in right M.D. 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, subs M75.41 Impingement syndrome of right shoulder Office Visit 01/27/2017 2:40p Primary Care Christie Cruz, I10 Essential ( primary) Office hypertension M25.511 Pain in right shoulder M54.5 Low back pain Office Visit 07/14/2012 3:30p Orthopaedic Office Vinay Chaudhari 845.00 Emily & A.MD Strains Ankle Unspec Site Office Visit 06/12/2012 2:40p Orthopaedic Office Vinay Chaudhari 845.00 Emily & A.MD Strains Ankle Unspec Site Office Visit 06/01/2012 2:30p Orthopaedic Office Vinay Chaudhari 845.00 Emily & A.MD Strains Ankle Unspec Site Office Visit 05/23/2012 2:10p Orthopaedic Office Vinay Chaudhari 845.00 Emily & A.MD Strains Ankle Unspec Site Office Visit 05/22/2012 11:50a Orthopaedic Office Vinay Chaudhari 845.00 Emily & A.MD Strains Ankle Unspec Site E007.3 Activities Involving Baseball Office Visit 05/19/2012 11:00a Orthopaedic Office Nadia Chaudharilon 845.00 Sprains & A.MD Strains Ankle Unspec Site E007.3 Activities Involving Baseball Plan of Treatment Future Appointment(s):01/30/2019 10:00 am - Jess Evans MS, [employer]ING ENTRYMAN-C, CNM at [facility]8409/18/2019 10:00 am - Skyler Sousa MD at 11/22/2018 - Chaparrita Munguia, PAZ01.818 Encounter for other preprocedural examinationComments:Pt is low risk for anticipated procedure.M54.12 Radiculopathy, cervical regionComments:For surgical [id number] Hyperlipidemia, unspecifiedComments:Stable- on Atorvastatin 40 mg [id number] Essential (primary) hypertensionComments:On Amlodipine 5 mg qpm, Losartan 50 mg qam.BP controlled. Goal <130/80Recommended that pt take Losartan morning of surgery with small sip of water. Otherwise NPO EKG- NSR.R94.5 Abnormal results of liver function studiesComments:Slight elevation of AST/ALT noted Oct 2018. Pt with cold sx at that time. And admitted to recent large amt of ETOH intake. No recent ETOH intakeRepeat labs are normal
--- OUTSIDE RECORDS SUMMARY | 2018-12-14 09:17 | XMS REPORT | Continuity of Care Document ---
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 Christie Cruz MD Primary Care Physician Unavailable Payers Type Date Identification Numbers Payment Provider Subscriber Policy Number: [id number] / [employer] [employer] Chan Murray PayID: [id number] [address] [address] [place] [address] Advance Directives Description No Information Available Problems Description No Information Family History Date Family Member(s) Problem(s) Comments Father Age is Unknown Mother 60 Children 2 Siblings None Social History Type Date Description Comments Sex Unknown Marital Status Single Lives With Children 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 ETOH Use Rarely consumes alcohol Recreational Drug Use Denies Drug Use Tobacco Use Start: Unknown End: Unknown Patient is a former smoker Smoking Status Reviewed: 11/28/18 Patient is a former smoker Allergies, Adverse Reactions, Alerts Description No Known Drug Allergies Medications Medication Date Status Form Strength Qnty SIG Indications Ordering Provider Lyrica 06/02/ Active Capsules 100mg 60caps sipo Hi, 2017 every 12 Quinton, hours as DO, MPH directed chronic pain patient Oxycodone HCL 04/18/ Active Tablets 5mg 90tabs si by Hi 2018 mouth Quinton, every 8 DO, MPH hours as directed chronic pain patient Cyclobenzaprine / Active Tablets 10mg 90tabs si by Hi, HCL 0000 mouth Quinton, three DO, MPH times a day as directed Amlodipine 00// Active Tablets 5mg si by Unknown Besylate 0000 mouth every day Atorvastatin 0000/ Active Tablets 40mg Unknown Calcium 0000 Losartan / Active Tablets 50mg 1 by Unknown Potassium 0000 mouth daily Nitroglycerin / Active Tablets 0.4mg 1/2 by Unknown 0000 Sub mouth twice daily Lyrica 04/18/ Hx Capsules 75mg 60caps si by Hi, 2018 - mouth Quinton, 06/02/ every 12 DO, MPH 2018 hours as directed chronic pain patient Immunizations Description No Information Available Vital Signs Date Vital Result Comment 11/28/2018 11:51am BP Systolic 1300 mmHg BP Diastolic 78 mmHg Heart Rate 74 /min Respiratory Rate 20 /min Height 69 inches 5'9" Weight 216.00 lb Pain Level 7 Pain at this time. Pain Level With Medicine 6 on average with meds Pain Level Without Medicine 08/23 without meds BMI (Body Mass Index) 31.9 kg/m2 10/31/2018 8:57am BP Systolic 132 mmHg BP Diastolic 84 mmHg Heart Rate 80 /min Respiratory Rate 20 /min Height 69 inches 5'9" Weight 218.00 lb Pain Level 6 Pain at this time. Pain Level With Medicine 5 on average with meds Pain Level Without Medicine 08/23 without meds BMI (Body Mass Index) 32.2 kg/m2 09/29/2018 9:38am BP Systolic 130 mmHg BP Diastolic 78 mmHg Heart Rate 76 /min Respiratory Rate 20 /min Height 69 inches 5'9" Weight 218.00 lb Pain Level 6 Pain at this time. Pain Level With Medicine 5 on average with meds Pain Level Without Medicine 08/23 without meds BMI (Body Mass Index) 32.2 kg/m2 08/31/2018 3:29pm BP Systolic 128 mmHg BP Diastolic 84 mmHg Heart Rate 86 /min Respiratory Rate 20 /min Height 69 inches 5'9" Weight 218.00 lb Pain Level 7 Pain at this time. Pain Level With Medicine 6 on average with meds Pain Level Without Medicine 08/23 without meds BMI (Body Mass Index) 32.2 kg/m2 08/01/2018 9:20am BP Systolic 128 mmHg BP Diastolic 84 mmHg Heart Rate 86 /min Respiratory Rate 20 /min Height 69 inches 5'9" Weight 206.00 lb Pain Level 6 Pain at this time. Pain Level With Medicine 5 on average with meds Pain Level Without Medicine 08/23 without meds BMI (Body Mass Index) 30.4 kg/m2 06/30/2018 10:39am BP Systolic 148 mmHg BP Diastolic 86 mmHg Heart Rate 92 /min Respiratory Rate 20 /min Height 69 inches 5'9" Weight 202.00 lb Pain Level 6 Pain at this time. Pain Level With Medicine 5 on average with meds Pain Level Without Medicine 10 08/23 without meds BMI (Body Mass Index) 29.8 kg/m2 06/02/2018 9:36am BP Systolic 134 mmHg BP Diastolic 80 mmHg Heart Rate 74 /min Respiratory Rate 20 /min Height 69 inches 5'9" Weight 206.00 lb Pain Level 4 Pain at this time. Pain Level With Medicine 4 on average with meds Pain Level Without Medicine 10 08/23 without meds BMI (Body Mass Index) 30.4 kg/m2 05/02/2018 9:20am BP Systolic 132 mmHg BP Diastolic 84 mmHg Heart Rate 80 /min Respiratory Rate 20 /min Height 69 inches 5'9" Weight 206.00 lb Pain Level 3 Pain at this time. Pain Level With Medicine 3 on average with meds Pain Level Without Medicine 10 08/23 without meds BMI (Body Mass Index) 30.4 kg/m2 04/18/2018 10:41am BP Systolic 130 mmHg BP Diastolic 76 mmHg Heart Rate 74 /min Respiratory Rate 20 /min Height 69 inches 5'9" Weight 201.00 lb Pain Level 4 Pain at this time. Pain Level Without Medicine 10 08/23 without meds BMI (Body Mass Index) 29.7 kg/m2 Results Description No Information Available Procedures Date Code Description Status 10/31/2018 67557 Omt 1-2 Body Regions Completed 10/31/2018 03580 Therapeutic, Prophylactic Or Diagnostic Injection Subq/Im Completed 09/29/2018 64713 Omt 1-2 Body Regions Completed 09/29/2018 43828 Therapeutic, Prophylactic Or Diagnostic Injection Subq/Im Completed 08/31/2018 50006 Omt 1-2 Body Regions Completed 08/31/2018 06366 Therapeutic, Prophylactic Or Diagnostic Injection Subq/Im Completed 08/01/2018 46344 Therapeutic, Prophylactic Or Diagnostic Injection Subq/Im Completed 06/30/2018 80205 Omt 3-4 Body Regions Completed 06/30/2018 10361 Therapeutic, Prophylactic Or Diagnostic Injection Subq/Im Completed 06/02/2018 93576 Omt 3-4 Body Regions Completed 06/02/2018 32441 Therapeutic, Prophylactic Or Diagnostic Injection Subq/Im Completed 05/02/2018 53537 Omt 3-4 Body Regions Completed Encounters Type Date Location Provider Dx Diagnosis Office Visit 10/31/2018 Main Office as Of Quinton Do DO G89.29 Other chronic pain 9:00a 12/15/13 MPH M54.2 Cervicalgia M54.5 Low back pain M99.03 Segmental and somatic dysfunction of lumbar region M54.6 Pain in thoracic spine M99.02 Segmental and somatic dysfunction of thoracic region R53.83 Other fatigue 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 Office Visit 09/29/2018 9:00a Main Office as Quinton Do G89.29 Other chronic Of 12/15/13 DO, MPH pain M54.6 Pain in thoracic spine M99.02 Segmental and somatic dysfunction of thoracic region M54.5 Low back pain M99.03 Segmental and somatic dysfunction of lumbar region R53.83 Other fatigue 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 Office Visit 08/31/2018 3:30p Main Office as Quinton Do G89.29 Other chronic Of 12/15/13 DO, MPH pain M54.6 Pain in thoracic spine M99.02 Segmental and somatic dysfunction of thoracic region M54.5 Low back pain R53.83 Other fatigue 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 Office Visit 08/01/2018 9:15a Main Office as Quinton Do G89.29 Other chronic Of 12/15/13 DO, MPH pain M54.2 Cervicalgia M54.5 Low back pain M43.02 Spondylolysis, cervical region R53.83 Other fatigue Z79.891 FPC (current) use of opiate analgesic Office Visit 06/30/2018 10:30a Main Office as Quinton Do G89.29 Other chronic Of 12/15/13 DO, MPH pain M54.2 Cervicalgia M99.01 Segmental and somatic dysfunction of cervical region M54.6 Pain in thoracic spine M99.02 Segmental and somatic dysfunction of thoracic region M54.5 Low back pain M99.03 Segmental and somatic dysfunction of lumbar region R53.83 Other fatigue Z79.891 FPC (current) use of opiate analgesic Office Visit 06/02/2018 9:30a Main Office as Quinton Do, G89.29 Other chronic Of 12/15/13 DO, MPH pain M54.2 Cervicalgia M99.01 Segmental and somatic dysfunction of cervical region M54.6 Pain in thoracic spine M99.02 Segmental and somatic dysfunction of thoracic region M54.5 Low back pain M99.03 Segmental and somatic dysfunction of lumbar region R53.83 Other fatigue Z79.891 FPC (current) use of opiate analgesic Office Visit 05/02/2018 9:15a Main Office as Quinton Do, G89.29 Other chronic Of 12/15/13 DO, MPH pain M54.2 Cervicalgia M99.01 Segmental and somatic dysfunction of cervical region M54.6 Pain in thoracic spine M99.02 Segmental and somatic dysfunction of thoracic region M54.5 Low back pain M99.03 Segmental and somatic dysfunction of lumbar region M54.12 Radiculopathy, cervical region Z79.891 FPC (current) use of opiate analgesic Office Visit 04/18/2018 9:00a Main Office as Quinton Do, G89.29 Other chronic Of 12/15/13 , MPH pain M54.5 Low back pain M25.511 Pain in right shoulder M54.12 Radiculopathy, cervical region M54.2 Cervicalgia M75.41 Impingement syndrome of right shoulder G56.01 Carpal tunnel syndrome, right upper limb Z71.89 Other specified counseling Z71.3 Dietary counseling and surveillance Z79.891 FPC (current) use of opiate analgesic Plan of Treatment Future Appointment(s):12/12/2018 11:00 am - Quinton Do DO MPH at Main Office as Of 12/15/1401 1:00 pm - Quinton Do DO MPH at Main Office as Of 12/15/1400 - Quinton Do DO, MPHG89.29 Other chronic painComments: Chronic. Symptoms and complaints discussed and reviewed today. No significant changes in physical findings. Continue current medical pain management.M54.2 CervicalgiaComments:Chronic. Symptoms and complaints discussed and reviewed today. No significant changes in physical findings. Continue current medical pain management. ~B_ ~b_M99.01 Segmental and somatic dysfunction of cervical regionComments:Chronic. Symptoms and complaints discussed and reviewed today. Somatic dysfunctions noted warrantingOMT. Continue current medical pain management and OMT. [id number]. OMT performed.M54.6 Pain in thoracic spineComments: Chronic.Symptoms and complaints discussed and reviewed today. No significant changes in physical findings. Continue current medical pain management.M99.02 Segmental and somatic dysfunction of thoracic regionComments:Chronic. Symptoms and complaints discussed and reviewed today. Notable somatic dysfunctions noted warranting OMT. Continue current medical pain management and OMT. [id number]. OMT performed after evaluation. HVLA.M54.5 Low back painComments:Chronic. Symptoms and complaints discussed and reviewed today.No changes in physical findings. Patient is stable and comfortable when current medical therapy is rendered.M99.03 Segmental and somatic dysfunction of lumbar regionComments: Chronic. Symptoms and complaints discussed and reviewed today. Lumbar somatic dysfunctions noted warranting OMT. Continue current medical pain management and OMT. [id number]. OMT performed after evaluation. HVLA.M53.3 Sacrococcygeal disorders, not elsewhere classifiedComments:Chronic. Symptoms and complaints discussed and reviewed today. Notable sacral somatic dysfunctions warranting OMT. Patient is stable and comfortable with current medical therapy.M99.04 Segmental and somatic dysfunction of sacral regionComments:Chronic. Symptoms and complaints discussed and reviewed today. Sacral somatic dysfunctions noted warranting OMT. Continue current medical pain management and OMT. Sacral Torsion. OMT performed after evaluation. HVLA.M25.552 Pain in left hipComments: Chronic. Symptoms and complaints discussed and reviewed today. No significant changes in physical findings. Continue current medical pain management.R53.83 Other fatigueComments:Symptoms and complaints discussed and reviewed today. No significant changes in physical findings. Continue current medical pain management. B12 injection administered after patient evaluated. 1ml IM for fatigue. (See Consent for injection-B12 document for lot number and expiration date.)Z79.891 FPC (current) use of opiate analgesicNew Labs:Urine Drug Screen, Ordered: 11/28/18Comments:Urine drug screen sample taken today to monitor opiate use and to monitor use of illicit substances.Will discuss results at next appointment.The following tests were ordered:6 AM, AMPH, JOSEFA, LINDA, BUP, CARIS, COCM, COT, ETG, FENT, MCSHSG, OPI, OXY, PCP, TAPEN, XTSY, ZOLP. ~I_A urine drug test (UDT) was ordered for this patient and collected on site today. Creatinine has been ordered as well for specimen validity, not for kidney function. Preliminary UDT results are not final and should not be used to determine patient care or plan of treatment. Initially a qualitative immunoassay screen will be done. Any inconsistent or positive findings will be further tested with a more comprehensive quantitative confirmation LCMS study. It is part of the treatment process of prescribing controlled substances and is considered standard of care.~i_M25.551 Pain in right hipComments:Chronic. Symptoms and complaints discussed and reviewed today. No significant changes in physical findings. Continue current medical pain management.M99.05 Segmental and somatic dysfunction of pelvic regionComments:Chronic. Symptoms and complaints discussed and reviewed today. Pelvic somatic dysfunctions noted warranting OMT. Continue current medical pain management and OMT. Pelvic Shear. OMT performed. MFR. HVLA.AllComments: All above symptoms and complaints discussed as well as diagnoses reviewed.Continue trial of opioid pain management - note changes below; injection therapy, osteopathic manipulation (OMT), PT / modalities, and consults as needed to manage chronic pain.Side effects discussed; anticipatory guidance given. Patient clearly understands and agrees with all medical treatments and suggestions. 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 Activity as toleratedContinue with PCP
--- OUTSIDE RECORDS SUMMARY | 2018-12-14 09:17 | XMS REPORT | Continuity of Care Document ---
:1985 External Reference #:[id number] Author Name Nerybryon Rosalva Care Team Providers Name Role Phone Christie Cruz MD Primary Care Physician Unavailable Payers Type Date Identification Numbers Payment Provider Subscriber Policy Number: [id number] Facets Chan Pratt Trevor PayID: [id number] [address] [address] Expires: 2018 Policy Number: [id number] BS Estefania Guevara Soila Trevor Group Number: [id number] Group Name: [place] [id number] PayID: [id number] Advance Directives Description No Information Available Problems Description No Information Family History Date Family Member(s) Problem(s) Comments General Non-Contributory Social History Type Date Description Comments Sex Unknown Marital Status Single Lives With Children 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 ETOH Use Denies alcohol use Tobacco Use Start: Unknown End: Unknown Patient is a former smoker Recreational Drug Use Denies Drug Use Smoking Status Reviewed: 11/29/18 Patient is a former smoker Allergies, Adverse Reactions, Alerts Description No Known Drug Allergies Medications Medication Date Status Form Strength Qnty SIG Indications Ordering Provider Lyrica / Active Capsules 100mg 1 by Unknown 0000 mouth 2 times a day Oxycodone HCL / Active Tablets 5mg 1 tabs Unknown 0000 by mouth every 8 hours as needed Cyclobenzaprine / Active Tablets 10mg 1 tablet Unknown HCL 0000 by mouth q8 hours as needed muscle spasms Amlodipine / Active Tablets 5mg 1 by Unknown Besylate 0000 mouth every day Atorvastatin 00/00/ Active Tablets 40mg 1 by Unknown Calcium 0000 mouth every day Losartan Potassium 0000/ Active Tablets 50mg 1 by Unknown 0000 mouth every day Nitroglycerin 0000/ Active Patches 0.4mg/HR 1/2 by Unknown 0000 24HR mouth twice daily Immunizations CPT Code Status Date Vaccine Lot # [id number] Given 07/05/2002 Hep B Pediatric/Adolescent 01586 Given 07/05/2002 Measles Mumps And Rubella MMR Vital Signs Date Vital Result Comment 11/29/2018 10:00am Height 69.5 inches 5'9.50" Weight 205.00 lb BP Systolic Sitting 138 mmHg BP Diastolic Sitting 80 mmHg Pain Level 8 BMI (Body Mass Index) 29.8 kg/m2 10/17/2018 8:39am Height 69.5 inches 5'9.50" Weight 205.00 lb BP Systolic Sitting 138 mmHg BP Diastolic Sitting 90 mmHg Pain Level 6 BMI (Body Mass Index) 29.8 kg/m2 08/15/2018 9:12am Height 69.5 inches 5'9.50" Weight 205.00 lb BP Systolic Sitting 160 mmHg BP Diastolic Sitting 90 mmHg Pain Level 10 BMI (Body Mass Index) 29.8 kg/m2 Results Description No Information Available Procedures Description No Information Available Encounters Type Date Location Provider Dx Diagnosis Office Visit 10/17/2018 Neurosurgery Agnieszka M50.122 Cervical disc 8:30a [facility] Barba MD disorder at C5-C6 level with radiculopathy Office Visit 08/15/2018 Neurosurgery Agnieszka M50.122 Cervical disc 9:30a [facility] Barba MD disorder at C5-C6 level with radiculopathy Plan of Treatment Future Appointment(s):12/25/2018 1:30 pm - Agnieszka Barba MD at [facility]12/14/2018 10:30 am - Nelly Leyva PA-C at [facility]12/14/2018 10:30 am - Agnieszka Barba MD at [facility]11/29/2018 - Agnieszka Barba MDM50.122 Cervical disc disorder at C5-C6 level with radiculopathyFollow up:Rv one week, one month, three months snhseoQ90.892 Other spondylosis, cervical region
--- OUTSIDE RECORDS SUMMARY | 2018-12-14 09:17 | XMS REPORT | Continuity of Care Document ---
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 Tessa every 12 90 e, MS, hours MANAGER MSW-C, CNM Hydrocodone-Acetam 03/29/2018 - Hx Tablets 5-325mg 14tabs 1 tab once Shmuel inophen 06/14/2018 per day shelby Choudhary pain [place] 02/20/2018 - Hx Tablets 5-325mg 14tabs 1 [...] Naproxen - Hx Tablets 500mg 2 daily [place], 05/13/2017 MD Iker Hydrocodone-Acetami - Hx Tablets 5-325mg 30tabs 1 tab every Nancyerica lohen 05/13/2017 8 hours as MD Christie needed Gabapentin - Hx Capsules 300mg 1 by mouth Nancy, 06/20/2017 three times MD Christie a day Meloxicam - Hx Tablets 15mg 30tabs 1 tab by Nancy, 06/20/2017 rodrigo Soriano MD day with food Medications Administered in Office Medication Date Status Form Strength Qnty SIG Indications Ordering Provider Depomedrol Administered Injection Silva, 40mg/1cc 018 del Steel M.D. olone acetate) Depo-Medrol Administered Injection Silva, 20mg 017 Zuleyma Steel Immunizations CPT Code Status Date Vaccine Lot # 54622 Given 07/25/2017 Influenza Virus Vaccine, Quadrivalent, Slit Virus, [place] Use [address] Given 06/05/2017 Tdap injection Vital Signs Date [...] kg/m2 BSA (Body Surface Area) 2.16 m2 [place] body weight in kilograms 75 kg O2 % BldC Oximetry 98 % Ra 11/01/2018 10:19am BP Systolic Sitting Left Arm 124 mmHg BP Diastolic Sitting Left Arm 76 mmHg Body Temperature 97.0 F Heart Rate 100 /min Respiratory Rate 18 /min Height 70 inches 5'10" Weight 223.00 lb work boots BMI (Body Mass Index) 32.0 kg/m2 BSA (Body Surface Area) 2.19 m2 [place] body weight in kilograms 75 kg O2 % BldC Oximetry 99 % Ra 09/19/2018 10:10am BP Systolic Sitting Left Arm 138 mmHg BP Diastolic Sitting Left Arm 80 mmHg Heart Rate 106 /min Respiratory Rate 16 /min Height 70 inches 5'10" Weight 217.00 lb BMI (Body Mass Index) 31.1 kg/m2 BSA (Body Surface Area) 2.16 m2 [place] body weight in kilograms 75 kg 06/21/2018 2:40pm BP Systolic Sitting Right Arm 130 mmHg BP Diastolic Sitting Right Arm 84 mmHg Body Temperature 97.2 F Heart Rate 84 /min Height 70 inches 5'10" Weight 207.00 lb BMI (Body Mass Index) 29.7 kg/m2 BSA (Body Surface Area) 2.12 m2 [place] body weight in kilograms 75 kg O2 % BldC Oximetry 98 % 03/01/2018 11:06am BP Systolic 147 mmHg BP Diastolic 91 mmHg Body Temperature 98.1 F Heart Rate 76 /min Respiratory Rate 16 /min Height 70 inches 5'10" Weight 210.00 lb BMI (Body Mass Index) 30.1 kg/m2 BSA (Body Surface Area) 2.13 m2 [place] body weight in kilograms 75 kg Pain Level 7 12/23/2017 10:58am BP Systolic 142 mmHg BP Diastolic 87 mmHg Body Temperature 96.8 F Heart Rate 92 /min Respiratory Rate 15 /min Height 70 inches 5'10" Weight 215.00 lb BMI (Body Mass Index) 30.8 kg/m2 BSA (Body Surface Area) 2.15 m2 [place] body weight in kilograms 75 kg 11/25/2017 3:52pm BP Systolic Sitting Left Arm 132 mmHg BP Diastolic Sitting Left Arm 82 mmHg Heart Rate 92 /min Respiratory Rate 16 /min Height 70.5 inches 5'10.50" Weight 220.00 lb BMI (Body Mass Index) 31.1 kg/m2 BSA (Body Surface Area) 2.19 m2 [place] body weight in kilograms 77 kg 10/05/2017 12:00pm BP Systolic Sitting Left Arm 126 mmHg BP Diastolic Sitting Left Arm 78 mmHg Heart Rate 76 /min Respiratory Rate 14 /min Height 70.5 inches 5'10.50" Weight 217.00 lb BMI (Body Mass Index) 30.7 kg/m2 BSA (Body Surface Area) 2.17 m2 [place] body weight in kilograms 77 kg 09/05/2017 2:14pm BP Systolic Sitting Right Arm 158 mmHg BP Diastolic Sitting Right Arm 90 mmHg Heart Rate 72 /min Respiratory Rate 16 /min Height 70.5 inches 5'10.50" Weight 208.00 lb BMI (Body Mass Index) 29.4 kg/m2 BSA (Body Surface Area) 2.13 m2 [place] body weight in kilograms 77 kg 08/10/2017 11:25am BP Systolic Sitting Right Arm 145 mmHg BP Diastolic Sitting Right Arm 87 mmHg Heart Rate 93 /min Respiratory Rate 18 /min Height 70.5 inches 5'10.50" Weight 207.00 lb BMI (Body Mass Index) 29.3 kg/m2 BSA (Body Surface Area) 2.13 m2 [place] body weight in kilograms 77 kg 07/25/2017 3:23pm BP Systolic Sitting Right Arm 152 mmHg BP Diastolic Sitting Right Arm 82 mmHg Heart Rate 86 /min Height 70.5 inches 5'10.50" Weight 208.00 lb BMI (Body Mass Index) 29.4 kg/m2 BSA (Body Surface Area) 2.13 m2 [place] body weight in kilograms 77 kg O2 % BldC Oximetry 98 % 06/15/2017 10:49am BP Systolic Sitting Right Arm 146 mmHg BP Diastolic Sitting Right Arm 94 mmHg Body Temperature 97.8 F Heart Rate 88 /min Height 70.5 inches 5'10.50" Weight 210.00 lb BMI (Body Mass Index) 29.7 kg/m2 BSA (Body Surface Area) 2.14 m2 [place] body weight in kilograms 77 kg O2 % BldC Oximetry 98 % 05/13/2017 1:49pm BP Systolic Sitting Right Arm 142 mmHg BP Diastolic Sitting Right Arm 92 mmHg Heart Rate 90 /min Height 70.5 inches 5'10.50" Weight 212.50 lb BMI (Body Mass Index) 30.1 kg/m2 BSA (Body Surface Area) 2.15 m2 [place] body weight in kilograms 77 kg O2 % BldC Oximetry 98 % 03/04/2017 1:19pm BP Systolic 152 mmHg BP Diastolic 94 mmHg Heart Rate 104 /min Height 70.5 inches 5'10.50" Weight 216.00 lb BMI (Body Mass Index) 30.6 kg/m2 BSA (Body Surface Area) 2.17 m2 [place] body weight in kilograms 77 kg 02/11/2017 [...] kg/m2 BSA (Body Surface Area) 2.17 m2 [place] body weight in kilograms 77 kg 01/27/2017 [...] H/L Range Note Order 11/22/2018 [facility], Cardiology EKG <pending> [address] [place] [address] [phone] Comprehensive 11/18/2018 [facility] Glucose 94 mg/dL N 74-106 1 Metabolic Panel [address] [place], [place] [id number] [phone] BUN 20 mg/dL High 7-18 Creatinine 1.1 [...] Complete [address] [place] [address] Complete <SEE NOTE> [phone] Comprehensive 10/30/2018 [facility] Glucose 106 mg/dL N 74-10 5 Metabolic Panel [address] [place] [address] [phone] BUN 20 mg/dL High 7-18 Creatinine 1.0 [...] U/L N 45-117 LDL Cholesterol Profile 10/30/2018 [facility] Cholesterol 162 mg/dL <[address] [place], [place] [address] [phone] Triglycerides 173 mg/dL High <150 8 HDL Cholesterol 53 mg/dL >40 9 LDL-Cholesterol 74 mg/dL < 100 10 CBC W/Automated Diff 10/30/2018 [facility] White Blood 7.1 K/uL N 3.4-10.[address] [place] [address] [phone] Red Blood Count 5.53 M/uL N 4.20-5.80 [...] 33.0-73.0 Lymph % 31.1 % N 20.0-42.0 [place] % 11.8 % High 0.0-10.0 Eo% 3.4 % N 0.0-6.6 Bas% 0.8 % N 0.0-1.1 Neut# 3.76 K/uL N 1.8-7.0 Lymph # 2.21 K/uL N 1.0-4.0 [place] # 0.84 K/uL High 0.0-0.8 Eos # 0.24 K/uL N 0.0-0.5 Baso # 0.06 K/uL N 0.0-0.1 Laboratory test 10/30/2018 [facility] Vitamin 31.3 30.0-100.0 [address] D,25-Hydroxy ng/[place] [address] [phone] Slide Review DIFF ORDERED Differential-WBC Confirm 10/30/2018 [facility] Total Cells 100 #CELLS [address] [place] [address] [phone] Neutrophils% 57 % N 33-73 Lymph% 14 % Low 20-42 Atypical Lymph% 16 % High 0-7 Monocyte% 8 % N 0-10 Eosinophil% 5 % N 0-5 Platelet Estimate NORMAL Lyme Igg & Igm By 10/30/2018 [facility] Lyme AB Igg By Western . Western Blot [address] [place] [address] [phone] P93 AB Absent . P66 AB Absent [...] Interpretation Negative . 13 Vma And 08/13/2017 [facility] Norepinephrine,Ur 25 Undefined 14 Catecholamines, [address] ug/L 24HR [place] [address] [phone] Norepinephrine,U,24HR 83 ug/24hr 0-135 Epinephrine,Urine 5 ug/L Undefined Epinephrine,U,24 HR 17 ug/24hr 0-20 Dopamine,Urine 99 ug/L Undefined Dopamine,Ur,24HR 327 ug/24hr 0-510 Vma,Urine 1.6 mg/L Undefined Vma,Urine,24HR 5.3 mg/24hr 0.0-7.5 15 Laboratory test 08/10/2017 [facility] Thyroid Stim 1.97 uIU/mL N 0.30-4.20 [address] Hormone [place], [place] [address] [phone] Free T4 0.86 ng/dL N 0.76-1.46 Metanephrines,Frac,Plasma 08/10/2017 [facility] Normetanephrines,Plasma 16 0- [address] pg/[place] [address] [phone] Metanephrine, Plasma < 10 pg/mL 0-62 17 [...] N 3.4-10.[address] K/[place] [address] [phone] Red Blood Count 5.32 M/uL N 4.20-5.80 [...] 33.0-73.0 Lymph % 33.0 % N 20.0-42.0 [place] % 11.7 % High 0.0-10.0 Eo% 2.1 % N 0.0-6.6 Bas% 0.5 % N 0.0-1.1 Neut# 4.03 K/uL N 1.8-7.0 Lymph # 2.53 K/uL N 1.0-4.0 [place] # 0.90 K/uL High 0.0-0.8 Eos # 0.16 K/uL N 0.0-0.5 Baso # 0.04 K/uL N 0.0-0.1 Laboratory test 08/08/2017 [facility] Troponin-I < 0.015 [address] ng/[place] [address] [phone] Albumin/Glob SerPl 08/08/2017 N2N/CCD Import Albumin/Glob SerPl [...] (number/volume) (number/volume) 0. 8 LDL Cholesterol 08/03/2017 [facility] Cholesterol 112 <2 20, Profile [address] mg/dL 00 21 [place] [address] [phone] Triglycerides 55 mg/dL <150 22 HDL Cholesterol [...] 106 mg/dL N 74-106 Metabolic Panel [address] [place] [address] [phone] BUN 17 mg/dL N 7-18 Creatinine 1.0 [...] 6.8 K/uL N 3.4-10.5 26 Diff [address] [place] [address] [phone] Red Blood Count 5.18 M/uL N 4.20-5.80 [...] 33.0-73.0 Lymph % 34.1 % N 20.0-42.0 [place] % 9.9 % N 0.0-10.0 Eo% 1.9 % N 0.0-6.6 Bas% 0.6 % N 0.0-1.1 Neut# 3.66 K/uL N 1.8-7.0 Lymph # 2.33 K/uL N 1.0-4.0 [place] # 0.68 K/uL N 0.0-0.8 Eos # 0.13 K/uL N 0.0-0.5 Baso # 0.04 K/uL N 0.0-0.1 LDL Cholesterol Profile 05/06/2017 [facility] Cholesterol 129 mg/dL <200 27 [address] [place] [address] [phone] Triglycerides 65 mg/dL <150 28 HDL Cholesterol 54 mg/dL >40 29 LDL-Cholesterol 62 mg/dL < 100 30 Comprehensive Metabolic 05/06/2017 [facility] Glucose 89 mg/dL N 74-106 Panel [address] [place] [address] [phone] BUN 17 mg/dL N 7-18 Creatinine 1.2 [...] 32, Profile [address] mg/dL 33 [place] [address] [phone] Triglycerides 119 mg/dL <150 34 HDL Cholesterol 51 mg/dL >40 35 LDL-Cholesterol 175 mg/dL < 100 36 Glycohemoglobin A1c 01/29/2017 [facility] Glycohemoglobin 5.5 % N 4.2-6.[address] (A1c) [place] [address] [phone] eAG 111 mg/dL Comprehensive Metabolic 01/29/2017 [facility] Glucose 97 mg/dL N 74-[address] [place] [address] [phone] BUN 25 mg/dL High 7-18 Creatinine 1.1 [...] U/L N 45-117 CBS W/Automated Diff 01/29/2017 [facility] White Blood 6.0 K/uL N 3.4-10.[address] [place] [address] [phone] Red Blood Count 5.32 M/uL N 4.20-5.80 [...] 33.0-73.0 Lymph % 32.8 % N 20.0-42.0 [place] % 10.1 % High 0.0-10.0 Eo% 3.2 % N 0.0-6.6 Bas% 0.7 % N 0.0-1.1 Neut# 3.21 K/uL N 1.8-7.0 Lymph # 1.98 K/uL N 1.0-4.0 [place] # 0.61 K/uL N 0.0-0.8 Eos # [...] D deficiency has been defined by the [place] of [employer] and an Endocrine Society practice guideline as a level of serum 25-OH vitamin D less than 20 ng/mL (1,2). The Endocrine Society went on to further define vitamin D insufficiency as a level between 21 and 29 ng/mL (2). 1. IOM ([place] of [employer]). 2010. Dietary reference intakes for calcium and D. [place]: The National AcademMaterials and Systems Research Press. 2. Jeet MF, Elizabeth ALVA, Brittany NOE, et al. Evaluation, treatment, and prevention of vitamin D deficiency: an Endocrine Society clinical practice guideline. JCEM. 2010; 96(7):1911-30. Performed at: RN - [facility] [address] [id number] Plating Engineer: Mandi Brown MD, Phone: [phone] Positive: 5 of the following Borrelia-specific [...] are those recommended by CDC/ASTPHLD. p23=Osp C, b14=vnfrocben Note: Sera from individuals with the following may cross react in the [place]yme Western Blot assays: other spirochetal diseases (periodontal disease, leptospirosis, relapsing fever, yaws, and pinta); connective autoimmune (Rheumatoid Arthritis and Systemic Lupus Erythematosus and also individuals with Antinuclear Antibody); other infections ([place] Spotted Fever; Sveta-Mckeon Virus, and Cytomegalovirus). Performed at: [address] [id number] Plating Engineer: Mandi Brown MD, Phone: [phone] 14 R07.9 I10 15 This test was developed and its performance characteristics determined by [facility]. It has not been cleared or approved by the Food and Drug Administration. Performed at: [address] [id number] Plating Engineer: Luis Alberto Avila MD, Phone: [phone] 16 R07.9,I10 17 Concentrations of Normetanephrine between 146 and 487 pg/mL, and Metanephrine between 63 and 255 pg/mL are considered indeterminate. Follow-up biochemical testing is recommended when patient levels fall within this indeterminate range. These tests include repeat testing of plasma/urinary fractionated metanephrines and plasma catecholamines. Performed at: [address] [id number] Plating Engineer: Luis Alberto Avila MD, Phone: [phone] CP HEART IS RACING, SOB 19 [...] for more aggressive treatment of glycemia. The [place] Diabetes Association recommends that a primary goal [...] www.kdoqi.org. Procedures Date Code Description Status 11/22/2018 65419 EKG-Tracing And Report Completed 01/12/2018 15353 Esophageal Motility Study Completed 12/23/2017 68550 Asp./Injection major joint Completed 09/21/2017 28424 Asp./Injection major joint Completed 09/05/2017 24475 EKG-Tracing And Report Completed 08/29/2017 12787 Bronchospasm Provocation Evaluation Multi Spirometric Completed Determinati 08/29/2017 35517 Spirometry Completed 07/29/2017 24292 Stress Test Interpre And Report Only Completed 07/29/2017 16737 Stress Test Physician Super Only Completed 07/29/2017 99397 Myocardial Imaging Tomographic Multiple Study AT Rest Or Completed Stress 07/25/2017 84478 EKG-Tracing And Report Completed 02/11/2017 29145 xray spine cervical min 4 views Completed 01/31/2017 96555 Radiology, Shoulder: Two Views (Sso) Completed 06/01/2012 10057 Radiology, Foot, Complete-3 Views Completed 06/01/2012 05213 Radiology, Ankle Complete Completed Encounters Type Date Location Provider Dx Diagnosis Office Visit 11/22/2018 Primary Care Ezra Z01.818 Encounter for other 3:00p Office ELIAN Sherman preprocedural examination M54.12 Radiculopathy, cervical region E78.5 Hyperlipidemia, unspecified I10 Essential (primary) hypertension R94.5 Abnormal results of liver function studies Office Visit 11/01/2018 10:00a Primary Care Nathan, J01.90 Acute sinusitis, Office Jess, MS, unspecified MANAGER MSW-C, CNM J02.9 Acute pharyngitis, unspecified R94.5 Abnormal results of liver function studies E78.5 Hyperlipidemia, unspecified I10 Essential (primary) hypertension Office Visit 09/19/2018 GI Skyler Sousa, K22.9 Disease of 10:00a esophagus, unspecified Office Visit 06/21/2018 Orthopaedic Funmi Mi, M54.12 Radiculopathy, 2:30p Office cervical region M75.41 Impingement syndrome of right shoulder Office Visit 06/14/2018 8:45a Orthopaedic Cherise Mi75.41 Impingement Office MD Funmi syndrome of right shoulder G56.01 Carpal tunnel syndrome, right upper limb M54.12 Radiculopathy, cervical region Office Visit 01/25/2018 10:45a Cherise Nicolas75.41 Impingement Office MD Funmi syndrome [...] Office Visit 09/05/2017 2:00p Cardiology Office Maricruz Ramos R07.2 Precordial pain MD I10 Essential (primary) [...] Primary Care Christie Cruz M75.41 Impingement Office MD syndrome of right shoulder S89.92xA Unspecified injury of left lower leg, initial encounter Office Visit 05/13/2017 1:20p Primary Care Christie Cruz M54.12 Radiculopathy, Office cervical region M75.41 Impingement syndrome of right shoulder I10 Essential (primary) hypertension E78.5 Hyperlipidemia, unspecified Office Visit 03/04/2017 1:20p Primary Care Nancy, Christie, M54.12 Radiculopathy, Office cervical region M75.41 Impingement [...] Baseball Office Visit 05/19/2012 11:00a Orthopaedic Office Vinay Chaudhari 845.00 Emily Uma Sung MD Strains Ankle Unspec Site E007.3 Activities Involving Baseball Plan of Treatment Future Appointment(s):01/30/2019 10:00 am - Jess Evans, , MANAGER MSW-C, CNM at Primary Care Pqhfej3309/18/2019 10:00 am - Skyler Sousa MD at 11/22/2018 - Chaparrita Munguia, PAZ01.818 Encounter for other preprocedural examinationComments:Pt is low risk for anticipated procedure.M54.12 Radiculopathy, cervical regionComments:For surgical ngfmrjhxybetA53.5 Hyperlipidemia, unspecifiedComments:Stable- on Atorvastatin 40 mg [id number] Essential (primary) hypertensionComments:On Amlodipine 5 mg qpm, [...]
[2018-12-14] MEDS ORDERED: ceFAZolin 2 GM PREMIX in ORs 2 GM/50 ML BAG IVPB ONE (09:50)
[2018-12-14] MEDS ORDERED: Famotidine IV* 10 MG/ML 2 ML (20 mg) ONE (09:50)
[2018-12-14] MEDS ORDERED: Dexamethasone IV* 4 MG/ML 1 ML (4 MG) ONE (09:50)
[2018-12-14] MEDS ORDERED: fentaNYL* 50 MCG/ML 5 ML VIAL (250 MCG VIAL) ONE (11:07)
[2018-12-14] MEDS ORDERED: Midazolam* 1 MG/ML 5 ML VIAL (5 MG) ONE (11:07)
[2018-12-14] MEDS ORDERED: Lidocaine 2% PF * 5 ML VIAL ONE (11:09)
[2018-12-14] MEDS ORDERED: Propofol* 10 MG/ML 20 ML BTL ONE (11:09)
[2018-12-14] MEDS ORDERED: Ondansetron INJ* 2 MG/ML VIAL ONE (11:09)
[2018-12-14] MEDS ORDERED: Lidocaine 1% MPF wEPI 200,000* 30 ML SDV ONE (11:09)
[2018-12-14] MEDS ORDERED: Bacitracin IV* 50,000 UNITS INJ ONE (11:09)
[2018-12-14] MEDS ORDERED: Thrombin 5,000 UNITS* 1 APPLIC KIT - topical use - TOPICAL ONE (11:09)
[2018-12-14] MEDS ORDERED: fentaNYL* 50 MCG/ML 2 ML VIAL (100 MCG VIAL) ONE ×4 (12:08→14:41)
[2018-12-14] MEDS ORDERED: Sugammadex * 200 MG/2 ML VIAL IV PUSH ONE (13:13)
[2018-12-14] MEDS ORDERED: Scopolamine 1.5 mg* PATCH TRANSDERM PRN (13:38)
[2018-12-14] MEDS ORDERED: DiMENhydriNATE IV* 50 MG/ML VIAL IV PUSH PRN (13:38)
[2018-12-14] MEDS ORDERED: Ondansetron INJ* 2 MG/ML VIAL IV PRN ×2 (13:38→14:16)
[2018-12-14] MEDS ORDERED: HYDROmorphone INJ1* 1 MG/ML SYRINGE IV PRN (13:38)
[2018-12-14] MEDS ORDERED: Naloxone* 0.4 MG/ML 1 ML VIAL IV PRN (13:38)
[2018-12-14] MEDS ORDERED: HYDROcodone/ACETAMIN 5-325 MG* 1 TAB PO PRN (14:16)
[2018-12-14] MEDS ORDERED: Magnesium Hydroxide LIQ* 30 ML UDC PO PRN (14:16)
[2018-12-14] MEDS ORDERED: Acetaminophen TAB* 325 MG PO PRN (14:16)
[2018-12-14] MEDS ORDERED: Benzocaine/Menthol LOZ* 1 LOZENGE PO PRN (14:22)
[2018-12-14] MEDS ORDERED: Naloxone* 0.4 MG/ML 10 ML VIAL ONE (14:31)
[2018-12-14] MEDS: fentaNYL* 50 MCG/ML 2 ML VIAL (100 MCG VIAL) IV PRN ×2 (14:43→14:46)
[2018-12-14] MEDS ORDERED: Lactated Ringers 1000 ML Bag* 1,000 ML IV SCH (15:00)
[2018-12-14] MEDS ORDERED: HYDROcodone/ACETAMIN 5-325 MG* 1 TAB ONE (15:42)
[2018-12-14] MEDS ORDERED: amLODIPine TAB* 5 MG PO SCH (18:00)
[2018-12-14] MEDS ORDERED: oxyCODONE/Acetamin 5/325 MG* TAB ONE ×2 (18:07→18:08)
[2018-12-14] MEDS ORDERED: oxyCODONE/Acetamin 5/325 MG* TAB PO PRN (18:28)
[2018-12-14] MEDS ORDERED: Atorvastatin* 40 MG TAB PO SCH (21:00)
[2018-12-14] MEDS: Pregabalin CAP(*) 100 MG PO SCH (21:37)
[2018-12-14] MEDS: oxyCODONE/Acetamin 5/325 MG* TAB PO PRN (23:46)
[2018-12-15] MEDS: Cyclobenzaprine TAB* 10 MG PO PRN ×2 (00:44→09:19)
[2018-12-15] MEDS: oxyCODONE/Acetamin 5/325 MG* TAB PO PRN ×3 (06:31→15:00)
[2018-12-15] MEDS ORDERED: Losartan TAB* 25 MG PO SCH (09:00)
[2018-12-15] MEDS: Pregabalin CAP(*) 100 MG PO SCH (09:19)
[2018-12-15 13:12] VITALS: BP 162/69
--- NOTE | 2018-12-15 14:49 | PN ---
Progress Note - Progress Note Date of Service: 12/15/18 SOAP: Subjective: []No events ON. Tolerated procedure well yesterday. Tolerates PO well. Wants to go home. Ambulates, Voids. Preop RUE numbness and pain resolved. Tolerates MJ collar well. Objective: []VSS, Afebrile Wound s,c,d AAOx3, YANG, CN II-XII grossly intact Motor 5/5 all extremities Sensory grossly intact to light touch Assessment: []33 yom POD#1 ACDF C5-6 Plan: []Monitor VS, Neurochecks Encourage ambulation. XR reveals good placement of hardware, good alignment of c spine. DC Planning later today. Full instructions were given. Keegan Barba MD
--- NOTE | 2018-12-16 01:35 | OP ---
DATE OF OPERATION: 12/14/18 - ROOM #351 DATE OF : 81 SURGEON: Dr. Agnieszka Barba. FLUME WORKER: ELIAN Santoyo. The case was done with the assistance of a surgical PA because of the complexity of the case. ANESTHESIA: General. PRE-OP DIAGNOSIS: Degenerative disk disease. POST-OP DIAGNOSIS: Degenerative disk disease. OPERATIVE PROCEDURE: Patient underwent anterior cervical discectomy and fusion at C5-6 with PEEK interbody cage, locally harvested autologous bone graft with DBX and instrumentation with plate and titanium screws with intraoperative electrophysiological monitoring. ESTIMATED BLOOD LOSS: 10 cc. COMPLICATIONS: None. SUMMARY: Patient is a very pleasant 33-year-old gentleman with complaints of neck pain radiating to the right upper extremity with significant weakness of the right upper extremity. Patient had MRI findings consistent with degenerative disk disease and right disk herniation at C5-6. He was offered the option of surgical intervention after explaining all the expectations, limitations, and possible complications of the procedure with complications included, but not limited to bleeding, infections, risk of injury to adjacent structures, coma, paralysis, , need for additional procedures, anesthesia risks, stroke, blindness, cancer, instability, hardware failure, adjacent level disease, pseudoarthrosis, spinal fluid leak, recurrent laryngeal nerve injury, Divya syndrome, need for tracheostomy or gastrostomy, need for prolonged ICU stay. Patient was agreeable to proceeding with surgery and informed consent was obtained. Patient's uncle, who is also his healthcare proxy, was present during this conversation. Patient understood that his condition may not improve and in fact, may get worse after surgery and that he may need to have additional procedure in the future. Patient also understood that the operative plan may be modified according to intraoperative findings and conditions and that he may need to have additional procedures in the future. He also understood that the case may be abandoned or performed in more than 1 stage. DESCRIPTION OF PROCEDURE: Patient was brought to the operating room and was placed under general anesthesia by the anesthesia team. He was carefully positioned supine on the Thor table and all bony prominences were meticulously padded. A shoulder roll was elevated with a shoulder bump, and the skin was prepped and draped in the standard fashion after appropriate surgical pause and patient identification. A right transverse incision was marked in the skin at the level of C5-6. The appropriate level was identified with the use of intraoperative fluoroscopic imaging. The skin was infiltrated with local anesthetic and after incising the skin with #10 surgical blade, the incision was carried down to the subcutaneous tissue with Bovie cautery. The subcutaneous tissue was undermined with the use of tenotomy scissors and self- retaining retractors were introduced into the field. The platysma was then divided with the use of tenotomy scissors and undermined. Self-retaining retractors were introduced further into the field and the plane between the medial border of the sternocleidomastoid and the medial structures was then developed with sharp and blunt dissection. The prevertebral fascia was soon identified and gently divided, and the C5-6 disk space was identified, and appropriate surgical level was confirmed with intraoperative microscopic imaging with a second time-out. Self-retracting retractors were introduced further into the field and a Knickerbocker pin was placed at the C5 and one at the C6 level. A standard diskectomy was performed after incising the annulus fibrosus with 15 surgical blade. The diskectomy was carried out with the use of pituitary rongeurs, Kerrison punches, curettes, and a high-speed drill while the locally harvested bone graft was saved for after this part of the procedure. The diskectomy was completed under microscopic imaging. A significant intervertebral disk herniation was identified. After dividing the posterior longitudinal ligament, the thecal sac was found to be free of any pressure phenomenon and foraminotomies were performed bilaterally. After confirmation of meticulous hemostasis and copious irrigation and meticulous inspection, a [employer]tronic PEEK interbody cage with 8 mm height was inserted after being filled with locally harvested bone graft and DBX. A small ZEVO plate 17 mm in height was then placed and secured in place with 15 mm titanium screws. Intraoperative fluoroscopic imaging confirmed excellent placement of all hardware. The plate was placed after removal of the Knickerbocker pins. After copious irrigation and confirmation of meticulous hemostasis and meticulous inspection, the self-retaining retractors were removed and the wound was closed in layers with 2-0 interrupted Vicryl sutures to approximate the platysma, while the subcutaneous tissue was approximated with interrupted 2-0 Vicryl sutures. The skin was covered with Dermabond. At the end of the procedure, all counts were reported to be correct. The patient remained hemodynamically stable through-out the case and intraoperative electrophysiological monitoring was stable throughout the case. The patient was then extubated and was transferred to Recovery in excellent condition, moving all extremities well with significant improvement in the mobility of his right upper extremity and his right shoulder. [id number]/[facility] #: [id number] MTDD
== END 2018-12-15 15:00 | disposition home or self-care (01) | DRG 321 ==
LOC: AA 09:14 → SSU 16:11
PROVIDERS: ADMIT Neurological Surgery; ATTEND Neurological Surgery
PROC: 0RB30ZZ Excision of Cervical Vertebral Disc, Open Approach (ICD-10-PCS; 2018-12-14)
PROC: 0RG10A0 Fusion of Cervical Vertebral Joint with Interbody Fusion Device, Anterior Approach, Anterior Column, Open Approach (ICD-10-PCS; principal; 2018-12-14 11:45)
DX: M50.122 Cervical disc disorder at C5-C6 level with radiculopathy (principal); M25.78 Osteophyte, vertebrae; M47.892 Other spondylosis, cervical region; E78.5 Hyperlipidemia, unspecified; I10 Essential (primary) hypertension; M19.90 Unspecified osteoarthritis, unspecified site; E66.9 Obesity, unspecified; G62.9 Polyneuropathy, unspecified; Z83.3 Family history of diabetes mellitus; Z72.89 Other problems related to lifestyle; Z68.31 Body mass index [BMI] 31.0-31.9, adult; Z87.891 Personal history of nicotine dependence
CPT/HCPCS: 72020; 72040; 90686; A9270-GY; J0690; J1100; J2001; J2250; J2310; J2405; J2704; J3010